=== PATIENT | female | born 1970 | race Caucasian/White ===

== ENCOUNTER → 2017-07-16 17:00 | Outpatient (CLI) | payer BC, MEDICAID, SELFPAY ==
--- NOTE | 2017-07-16 16:46 | BI_ITS ---
MAMMOGRAPHY - BILATERAL SCREENING REASON FOR EXAM: Female, 47 years old. Routine annual screening examination. PERTINENT HISTORY: Aunt with breast cancer. Bilateral breast implants. TECHNIQUE: Digital bilateral breast zuly (3D mammographic acquisition) in the CC and MLO projections. 2-D mediolateral oblique (MLO) and craniocaudad (CC) views of both breasts were obtained. CAD: Full Field Digital Mammography with Computer Added Detection was performed. COMPARISON: Comparison is made with prior study dated June 12, 2016 and February 09, 2015. FINDINGS: Breast Composition: There are scattered areas of fibroglandular density. There are no dominant masses or suspicious calcifications. Stable appearance of the bilateral breast implants. No other significant abnormalities are identified. There has been no significant change since the prior study. BI/SCREENING MAMM (CAD), BILAT IMPRESSION: Stable bilateral screening mammogram. Yearly follow-up mammogram recommended. (A) ASSESSMENT CATEGORY: BIRADS Category 2: Benign. A letter regarding these results will be sent to the patient by the facility within 30 days. Approximately 10% of breast cancers are not detected by mammography. A normal mammogram should not delay biopsy of a clinically suspicious abnormality. [id number] Electronically Signed: Abelino Galeas MD at 8:55 EDT Tel [phone], Service support ,
== END ==
PROVIDERS: Family Provider Family Medicine; PCP Family Medicine; Visit Provider Family Medicine
DX: Z12.31 Encounter for screening mammogram for malignant neoplasm of breast (principal)
CPT/HCPCS: 77063; 77067

== ENCOUNTER → 2017-08-02 12:43 | Outpatient (CLI) | payer BC, MEDICAID, SELFPAY ==
--- NOTE | 2017-08-02 12:51 | ECHOD_ITS ---
Reason For Study: Palpitations Procedure This was a 2D Doppler, Color Flow transthoracic echocardiogram. Exam performed in department. Left Ventricle Normal LV size. Left ventricular systolic function is normal. The estimated ejection fraction is 65 %. Normal diastology for age. No regional wall motion abnormalities noted. Right Ventricle Normal RV size. Normal systolic function. Atria Normal left atrium. Normal right atrium. No doppler evidence for ASD. Mitral Valve There is no mitral annular calcification. Normal mitral valve. Trivial mitral valve insufficiency. Tricuspid Valve Normal tricuspid valve. Mild tricuspid valve insufficiency. Right ventricular systolic pressure estimated to be 20 mmHg. Aortic Valve Trisinus/trileaflet aortic valve. Normal aortic valve. Pulmonic Valve Normal pulmonic valve. Trivial pulmonic valve insufficiency. Great Vessels Normal sized aortic root. Pericardium/Pleural No pericardial effusion. MMode/2D Measurements & Calculations LVIDd: 4.3 cm IVSd: 0.94 cm Ao root diam: 3.0 cm LVIDs: 3.0 cm LVPWd: 0.86 cm LA dimension: 2.8 cm RVDd: 2.8 cm FS: 30.8 % LAV(MOD-bp): 29.6 ml LA A4 area: 11.1 cm2 RA A4 area: 14.0 cm2 LAV(MOD-bp) Indexed: 16.6 ml/m2 LAV(MOD-sp2): 41.0 ml LAV(MOD-sp4): 21.2 ml Doppler Measurements & Calculations MV E max virgilio: 61.1 cm/sec Lat Peak E' Virgilio: 11.4 cm/sec Med Peak E' Virgilio: 9.4 cm/sec MV A max virgilio: 53.6 cm/sec E/E' lat: 5.4 E/E' med: 6.5 MV E/A: 1.1 Ao V2 max: 110.0 cm/sec LV V1 max: 89.8 cm/sec PA V2 max: 90.4 cm/sec Ao max P.8 mmHg LV V1 max P.2 mmHg TR max virgilio: 204.1 cm/sec TR max P.7 mmHg Interpretation Summary Left ventricular systolic function is normal. The estimated ejection fraction is 65 %. Trivial mitral valve insufficiency. Mild tricuspid valve insufficiency. Trivial pulmonic valve insufficiency. Right ventricular systolic pressure estimated to be 20 mmHg. Normal diastology for age. Comment / Disclaimer: The offiial transthoracic echocardiogram report was delayed secondary to [facility] Information Systems technical issues. A hand writtern preliminary report was previously made available for review. Ordering Physician: Oren Martell Referring Physician: Massimo Farris MD Performed By: Kathi Paredes RDCS
== END ==
PROVIDERS: Family Provider Family Medicine; PCP Family Medicine; Visit Provider Internal Medicine Cardiovascular Disease
DX: R00.2 Palpitations (principal); I49.9 Cardiac arrhythmia, unspecified
CPT/HCPCS: 93270; 93306

== ENCOUNTER 2017-12-18 19:25 | Emergency (ER) | payer BC, MEDICAID, SELFPAY ==
[2017-12-18 19:26] VITALS: BP 131/81; PULSE 81; RESP 20; TEMP 36.7; O2SAT 98; BMI 27.8
--- NOTE | 2017-12-18 20:07 | ED.VISSUMM ---
- ER Visit Summary Date of Service: 12/18/17 Chief Complaint: Stitches broke. History of Present Illness: The patient is a [address] Massimo Farris. She reports that 5 days ago she had a skin cancer removed by Dr. Alan. She reports that this was closed with 3 stitches. States that one was loose and fell out yesterday. Second was loose today so she removed it. The third was still tight, but she removed it as well. She reports that she was washing her face tonight and the wound broke open. She denies any drainage, redness, or pain. She has an appointment for follow-up in 2 days. Physical Examination: Vitals: Stable. Afebrile. General: Well-nourished and well-developed. Head: Normocephalic atraumatic. Neck: Supple, no lymphadenopathy. No JVD. Nontender. Cardiovascular: Regular rate and rhythm. No murmurs. Respiratory: No respiratory distress. Clear to auscultation bilaterally. Abdominal: Soft, nontender, nondistended, normal bowel sounds. No guarding, rebound, or peritoneal signs. Back: Nontender. Extremities: Nontender, no edema. Skin: 1 cm incision just lateral to her right eye that has dehisced. There is no erythema, induration, or drainage. No bleeding. Neurologic: Alert and oriented ?3. Cranial nerves II through XII are intact. Normal strength and sensation. Psych: Normal affect. Emergency Department Course and Treatment: Had a prolonged discussion with the patient about this wound. I do not feel that closing it is in her best interest. It was brought together with Steri-Strips. Treatment Plan: Patient be discharged instructions to follow-up with dermatology in 2 days previously scheduled. Return to the emergency department for any worsening symptoms. Disposition: To home in improved and stable condition. Impression: 1. Right eyebrow incision dehiscence. This note was generated with [employer] dictation software. It may contain incorrect words, spelling, and punctuation that were not noted in review of the chart prior to signing ED Disposition - Plan for ED Patient: Disposition: Home or Assisted Living Chief Complaint: Wound Check Instructions: ED Wound Check Post Op No Infec Referrals: Doctor,Your [STAFF PHYSICIAN] - Keep Carlos Eduardo appointment
[2017-12-18 20:17] VITALS: BP 127/63; PULSE 75; RESP 16; O2SAT 99
== END 2017-12-18 20:35 | disposition home or self-care (01) ==
LOC: ED 20:18
PROVIDERS: Emergency Provider Emergency Medicine; Family Provider Family Medicine; PCP Family Medicine
DX: T81.31XA Disruption of external operation (surgical) wound, not elsewhere classified, initial encounter (principal)
CPT/HCPCS: 99282

== ENCOUNTER → 2018-08-25 15:23 | Outpatient (CLI) | payer BC, SELFPAY ==
--- NOTE | 2018-08-25 15:26 | BI_ITS ---
MAMMOGRAPHY - BILATERAL SCREENING 3-D TOMOSYNTHESIS REASON FOR EXAM: Female, 48 years old. Bilateral Screening 3-D tomosynthesis PERTINENT HISTORY: History of breast lift and implants in 2000.. TECHNIQUE: 2-D mammograms and 3-D Tomosynthesis of the breast (s) were performed. CAD was performed. COMPARISON: July 16, 2017, June 12, 2016 FINDINGS: The breast composition is almost entirely fat. There are stable bilateral subpectoral saline implants. Scattered benign calcifications are seen. No dense spiculated masses or suspicious microcalcifications are identified. No architectural distortion is identified. There is no skin thickening or retraction. There has been no significant change since the prior study. BI/SCREEN MAMM (CAD) W/CALVIN BILAT IMPRESSION: No mammographic signs of malignancy. Routine yearly mammograms recommended. ASSESSMENT CATEGORY: BIRADS Category 2: Benign. A letter regarding these results will be sent to the patient by the facility within 30 days. FOLLOW UP RECOMMENDATION: Yearly follow up mammogram recommended. (A) Approximately 10% of breast cancers are not detected by mammography. A normal mammogram should not delay biopsy of a clinically suspicious abnormality. Electronically Signed: Cale Gasca MD at 11:41 EDT , Service support ,
== END ==
PROVIDERS: Family Provider Family Medicine; PCP Family Medicine; Referring Provider Family Medicine; Visit Provider Family Medicine
DX: Z12.31 Encounter for screening mammogram for malignant neoplasm of breast (principal)
CPT/HCPCS: 77063; 77067

== ENCOUNTER 2019-07-17 17:19 | Emergency (ER) | payer OTHER, SELFPAY ==
[2019-07-17 17:20] VITALS: BP 139/100; PULSE 86; RESP 16; TEMP 36.4; O2SAT 99; BMI 28.3
--- NOTE | 2019-07-17 17:35 | CT_ITS ---
STUDY: CT ABDOMEN AND PELVIS WITHOUT CONTRAST REASON FOR EXAM: Female, 49 years old. LT ABD PAIN X SEVERAL HOURS. Hx of csection x 5, tubal ligation and breast augmentation RADIATION DOSAGE (If Supplied By Facility): CTDIvol = ( 16.04 ) mGy, DLP = ( 811.80 ) mGycm TECHNIQUE: Transaxial images were obtained from the dome of the diaphragm to the symphysis pubis without oral contrast, and without intravenous contrast. Sagittal and coronal images were reconstructed. Individualized dose optimization techniques were used for this CT. COMPARISON: 10/30/2016 FINDINGS: The visualized lung bases are unremarkable. The visualized portions of the heart are within normal limits. Breast implants. Stable 3.1 x 2.4 cm low-density lesion in the right hepatic lobe. 1 cm inferior right hepatic lobe cyst. Cholelithiasis. Normal spleen. Normal pancreas. Normal bilateral adrenal glands. Absent right kidney. Multiple small nonobstructing left renal stones. Normal visualized stomach. Normal small intestine. Normal colon. The appendix is visualized and appears normal. Normal abdominal aorta. Normal inferior vena cava. Normal retroperitoneum. Normal urinary bladder. Low-density lesion at the junction of the uterus and left adnexa measuring 4.3 x 3.3 cm. Differential includes necrotic uterine fibroid, adnexal cyst, and ovarian cyst. More laterally, left ovary cyst is identified measuring 16 x 13 mm. Normal abdominal wall. Normal osseous structures. CT/Abdomen/Pelvis W IV Cont ONLY IMPRESSION: No evidence of appendicitis, acute intestinal pathology, or acute obstructive uropathy. Cholelithiasis. Stable 3.1 x 2.4 cm low-density lesion in the right hepatic lobe. Low-density lesion at the junction of the uterus and left adnexa measuring 4.3 x 3.3 cm. Differential includes necrotic uterine fibroid, adnexal cyst, and ovarian cyst. More laterally, a left ovary cyst is identified measuring 16 x 13 mm. Electronically Signed: Abebe Julian MD at 19:37 EDT Tel , Service support ,
[2019-07-17 17:44] LABS: Bacteria 0 SEEN /hpf (None Seen); Mucous, Urine 0 SEEN /hpf (<or=2+)
[2019-07-17] MEDS: Ondansetron 4 MG/2 ML Vial IV (17:46)
[2019-07-17] MEDS: Morphine 4 MG/ML Syringe IV ×2 (17:46→22:19)
[2019-07-17] MEDS: 0.9% Normal Saline 1,000 ML 1000 ML IV (17:46)
[2019-07-17 17:47] LABS: Absolute Lymphocyte Count 2.86 X10^3/uL (0.83-4.51); Absolute Neutrophil Count 7.6 X10^3/uL (2.0-7.7); Basophil# 0.04 X10^3/uL; Basophil% 0.3 % (0-1); Eosinophils% 0.9 % (0-5); Hematocrit 41.5 % (37-47); Hemoglobin 13.9 g/dL (12.0-15.0); Lymphocyte # 2.86 X10^3/ul (4.0); Lymphocyte % 24.9 % (19-41); Mean Corp Hgb Conc 33.5 g/dL (32-36); Mean Corpuscular Hgb 29.6 pg (27.0-32.0); Mean Corpuscular Volume 88.5 fL (81-99); Mean Platelet Vol. 9.2 fl (6.2-12.0); Monocyte# 0.81 X10^3/uL; NRBC Flagged by Analyzer 0 % (0-5); Neutrophil # 7.62 X10^3/uL (2.7-7.7); Neutrophil % 66.3 % (47-70); Platelet Count 343 K/mm3 (150-450); RBC Distribution Width CV 12.5 % (11.6-14.6); RBC Distribution Width SD 40.5 fl (35.1-43.9); Red Blood Count 4.69 M/mm3 (4.2-5.4); White Blood Count 11.5 K/mm3 (4.4-11.0)
[2019-07-17 17:57] LABS: Color, Urine Yellow (Yellow); Glucose, Dipstick Normal (Normal); Ketone-Dipstick 5 mg/dl (Negative); Leukocyte Esterase-Dipstick 100 /ul (Negative); Nitrite-Dipstick Negative (Negative); Occult Blood-Urine 150 /ul (Negative); Protein-Dipstick 15 mg/dl (Negative); Specific Gravity, Urine 1.015 (1.002-1.030); Urine Bilirubin Dipstick Negative (Negative); Urine Clarity Cloudy (Clear); Urine Urobilinogen Normal (Normal)
--- NOTE | 2019-07-17 18:15 | ED.DCSUM_ITS ---
History of Present Illness Chief Complaint: Abd Pain Informant: Patient Onset: Today Context: Sudden Onset Timing: Continuous Current Severity: Moderate Maximum Severity: Severe Narrative: The patient is a 49-year-old female with medical history significant for prior kidney stone and ovarian cyst that presents to the emergency department with rather acute onset left lower quadrant pain. The patient states she was in her normal state of health. She states that she had sudden onset pain in her left lower quadrant that radiated to her back. She was acutely nauseated. She states there is components that feels similar to kidney stone and some that feel similar to prior ovarian cyst. She denies any trauma. She denies any fever or chills. She does admit to some increased urinary frequency. The patient is otherwise been in her normal state of health. Prior similar symptoms: No Recent Illness/Hospitalization: No Past Medical History - Allergies and Home Meds Allergies/Adverse Reactions: Allergies No Known Allergies Allergy (Verified 07/17/19 17:20) Primary Care Physician: Massimo Farris MD [Primary Care Provider] - Prior records reviewed: Yes Past Medical History: - - Prior kidney stone, ovarian cyst removal Surgical History: - Smoking Status: Never smoker Review of Systems General: Reports: Chills. Denies: Fever, Sweats Eyes: Denies: Visual changes - bilaterally, Diplopia ENT: Denies: Rhinorrhea, Sore throat Cardiovascular: Denies: Chest pain, Palpitations Respiratory: Denies: Dyspnea, Cough, Dyspnea on exertion Gastrointestinal: Reports: Abdominal pain, Nausea. Denies: Vomiting, Diarrhea, Melena, Hematochezia Genitourinary: Denies: Dysuria, Hematuria, Frequency Musculoskeletal: Denies: Back pain, Extremity Pain Skin: Denies: Rash, Wounds Neurological: Denies: Headache, Weakness, Numbness Physical Exam Vital Signs/Narrative: Vital Signs Temp Pulse Resp BP Pulse Ox 07/17/19 17:20 97.5 F L 86 16 139/100 H 99 Inital Vital Signs reviewed: Yes General: Well nourished, Well developed, No Acute Distress Head: Normocephalic, Atraumatic Eyes: Perrl, EOMI ENT: Moist mucous membranes, No rhinorrhea Neck: Supple, Nontender Cardiovascular: Regular rate, Regular rhythm, No murmurs Respiratory: No distress, CTA bilaterally, Chest nontender Abdomen: Soft, Nondistended, Normal bowel sounds, Tender. Negative for: Guarding, Rebound tenderness Back: Nontender, Normal Inspection Extremities: Nontender, No edema Skin: Normal color, No rash Neurological: Alert, Oriented x3, Cranial nerves II-XII grossly intact, Normal Strength, Normal Sensation Psychological: Normal affect, Normal Mood Diagnostic/Tx/Re-eval Clinical Impression(s) from Imaging Studies Abdomen/Pelvis CT 07/17/19 17:35 IMPRESSION: No evidence of appendicitis, acute intestinal pathology, or acute obstructive uropathy. Cholelithiasis. Stable 3.1 x 2.4 cm low-density lesion in the right hepatic lobe. Low-density lesion at the junction of the uterus and left adnexa measuring 4.3 x 3.3 cm. Differential includes necrotic uterine fibroid, adnexal cyst, and ovarian cyst. More laterally, a left ovary cyst is identified measuring 16 x 13 mm. Electronically Signed: Abebe Julian MD at 19:37 EDT Tel , Service support , Abnormal Lab Results 07/17/19 07/17/19 07/17/19 17:30 17:30 17:30 WBC 11.5 H RBC 4.69 Hgb 13.9 Hct 41.5 MCV 88.5 MCH 29.6 MCHC 33.5 RDW Std Deviation 40.5 RDW Coeff of Ruth 12.5 Plt Count 343 MPV 9.2 Immature Gran % (Auto) 0.600 Neut % (Auto) 66.3 Lymph % (Auto) 24.9 Chambers % (Auto) 7.0 Eos % (Auto) 0.9 Baso % (Auto) 0.3 Absolute Neuts (auto) 7.6 Absolute Lymphs (auto) 2.86 Nucleated RBC % 0 Sodium 138 Potassium 3.2 L Chloride 104 Carbon Dioxide 23.0 Anion Gap 11 BUN 13 Creatinine 1.15 H Estim Creat Clear Calc 51.10 Est GFR (MDRD) Af Amer 65 Est GFR (MDRD) Non-Af 53 L BUN/Creatinine Ratio 11.3 Glucose 142 H Calcium 9.3 Total Bilirubin 0.20 AST 14 L ALT 22 Alkaline Phosphatase 76 Total Protein 7.7 Albumin 3.7 Globulin 4.0 Albumin/Globulin Ratio 0.9 Urine Color Yellow Urine Clarity Cloudy Urine pH 8.0 Ur Specific Chemult 1.015 Urine Protein 15 H Urine Glucose (UA) Normal Urine Ketones 5 H Urine Occult Blood 150 H Urine Nitrite Negative Urine Bilirubin Negative Urine Urobilinogen Normal Ur Leukocyte Esterase 100 H Urine RBC 5-10 SEEN Urine WBC 10-25 SEEN Ur Squamous Epith Cells 0-5 SEEN Ur Transition Epith Cell 0 SEEN Amorphous Sediment 3+ Urine Bacteria 0 SEEN Coarse Granular Casts 0-5 SEEN Urine Mucus 0 SEEN - Medical Decision Making Clinically, the patient symptoms do seem more consistent with kidney stone. She had a sudden onset pain that would wax and wane and radiated to her back. However, the pain is been rather persistent. She is afebrile and has no tachycardia. IV was established. Patient was given fluids, analgesics, and antiemetics. Her pain was improved but she was still nauseated. Screening labs were obtained. She has a mild leukocytosis, otherwise lab work was unremarkable. There are some white cells in the urine without any bacteria and a few crystals. Patient underwent CT of the abdomen pelvis which shows multiple stones within the left kidney, but no evidence of acute obstruction or pyelonephritis. There is some abnormalities in the pelvis that are concerning for cyst of the ovary versus necrotic adnexal cyst. With the patient subjective chills, I did feel reasonable to obtain ultrasound. Results are currently pending. I do feel as long as this shows no significant abnormalities, the patient can safely be discharged home. Impression Left lower quadrant pain ED Disposition - Plan for ED Patient: Instructions: ED Pelvic Pain [facility] Prescriptions: Hydrocodone Bitart/Apap 5-325 [[place] 5MG-325MG] 1 tab PO Q6H PRN PRN 3 Days #10 tab PRN Reason: Pain Prescription Printed Ondansetron [Zofran Odt] 4 mg PO Q8H PRN PRN #10 tab PRN Reason: Nausea Prescription Printed Referrals: Massimo Farris MD [Primary Care Provider] -
[2019-07-17 18:38] LABS: Amorphous Sediment 3+; Squamous Epithelial Cells - UA 0-5 SEEN /hpf (5-10); Transitional Epithelial - Ur 0 SEEN /hpf (0-5)
[2019-07-17 18:39] LABS: Coarse Granular Cast 0-5 SEEN /lpf (0-5 /lpf)
[2019-07-17 18:40] LABS: Red Blood Cells-Urine 5-10 SEEN /hpf (0-5)
[2019-07-17 18:42] VITALS: TEMP 36.9
[2019-07-17 18:42] LABS: White Blood Cells 10-25 SEEN /hpf (0-5)
[2019-07-17 18:59] LABS: ALB/GLOB Ratio 0.9 RATIO (0.9-2.4); AST(SGOT) 14 U/L (15-37); Alanine Aminotransfer ALT/SGPT 22 U/L (13-56); Albumin, Serum 3.7 g/dL (3.2-5.0); Alkaline Phosphatase 76 U/L (45-117); Anion Gap 11 (5-15); BUN 13 mg/dL (7-18); BUN/Creat Ratio 11.3 RATIO (10-20); Calcium,Total 9.3 mg/dL (8.5-10.1); Chloride 104 mmol/L (98-107); Creatinine, Serum 1.15 mg/dL (0.55-1.02); EST Glomerular Filtration Rate 53 mL/min (>60); Est Glom Filt Rate - Afr Amer 65 mL/min (>60); Glucose 142 mg/dL (74-106); Potassium 3.2 mmol/L (3.5-5.1); Protein, Total 7.7 g/dL (6.4-8.2); Sodium Level 138 mmol/L (136-145)
[2019-07-17] MEDS: proMETHazine 25 MG/ML Syringe 6.25 MG IV (19:02)
--- NOTE | 2019-07-17 19:40 | US_ITS ---
STUDY: ULTRASOUND OF THE FEMALE PELVIS - COMPLETE REASON FOR EXAM: Female, 49 years old. LLQ PAIN LMP: 07/06/2019 TECHNIQUE: Transabdominal and Transvaginal TECHNICAL QUALITY: Adequate. COMPARISON: CT same day FINDINGS: The uterus is anteverted and is in a midline position. The uterus measures 8.1 x 5.3 x 4.0 cm. The cervix contains fluid. A 7 x 6 x 5 mm polyp is present in the cervix. The endometrium measures 3.2 mm in thickness, and is hyperechoic. There is no demonstrated endometrial mass. A left-sided myometrial mass is noted, isoechoic, compatible with fibroid, likely corresponding to recent CT abnormality, measuring 4.3 x 3.5 x 3.4 cm. Heterogeneous right-sided uterine fibroid measuring 14 x 15 x 13 mm. Heterogeneous fibroid in the mid uterus measuring 9 x 7 x 6 mm. I.U.D. - The patient does not have an I.U.D. The right ovary is visualized. The right ovary measures 2.4 x 2.9 x 1.8 cm. There is no right ovarian cyst or ovarian mass. There is no visualized right adnexal mass or complex lesion. There is normal arterial and normal venous vascularity. The left ovary is visualized. The left ovary measures 2.8 x 2.3 x 2.0 cm. Left ovary cyst measuring 19 x 18 x 16 mm. There is no visualized left adnexal mass or complex lesion. There is normal arterial and normal venous vascularity. There is no fluid in the cul-de-sac. The pre void volume of the bladder was 194.38 ml. Polycystic ovary disease: No. US/Transvaginal Non- IMPRESSION: Multiple uterine fibroids. The largest is on the left, measuring up to 4.3 cm, likely corresponding to abnormality seen on recent CT exam. Left ovary cyst measuring 19 x 18 x 16 mm. The cervix contains fluid. A 7 x 6 x 5 mm polyp is present in the cervix. Electronically Signed: Abebe Julian MD at 21:51 EDT Tel , Service support ,
[2019-07-17 22:25] VITALS: BP 119/67; PULSE 92; RESP 18; TEMP 36.6; O2SAT 96
== END 2019-07-17 22:53 | disposition home or self-care (01) ==
LOC: ED 18:47
PROVIDERS: Emergency Provider Emergency Medicine; PCP Family Medicine
DX: R10.32 Left lower quadrant pain (principal); N83.202 Unspecified ovarian cyst, left side; K80.20 Calculus of gallbladder without cholecystitis without obstruction; D25.9 Leiomyoma of uterus, unspecified; Z87.442 Personal history of urinary calculi; R35.0 Frequency of micturition
CPT/HCPCS: 74177; 76830; 80053; 81001; 85025; 96361; 96374; 96375; 96376; 99283; J7030; Q9967; A4216; J2405

== ENCOUNTER 2019-07-20 14:52 | Emergency (ER) | payer OTHER, SELFPAY ==
[2019-07-20 14:54] VITALS: BP 111/72; PULSE 101; RESP 16; TEMP 36.6; O2SAT 96; BMI 28.3
--- NOTE | 2019-07-20 15:46 | ED.DCSUM_ITS ---
History of Present Illness Chief Complaint: Vag Bleeding Informant: Patient Pain: Pelvic Pain Onset: Days - 3-4 Context: Gradual Onset Timing: Continuous Quality: Aching Location: - - throughout pelvis Current Severity: Severe Maximum Severity: Severe Worsened by: Movement - and walking Issue: Vaginal bleeding - ? -- thinks vagina but not sure; it's not a period Context: Gradual Onset Timing: Continuous Current Severity: Heavy Maximum Severity: Heavy Associated Symptoms: Negative for: Dysuria, Frequency, Urgency Narrative: Patient seen here from her PCPs office with increasing pain, possibly low-grade fevers, and continued worsening bleeding. Patient thinks it is vaginal but states she is not sure. She has not had a pelvic exam. She was seen in the ER and had a CT of the abdomen and pelvis as well as an ultrasound, both of which showed a large uterine fibroid, incidental gallstones, and no sign of a kidney stone, however the patient states that someone told her it may be a kidney stone or a fibroid. She has some low back pain nonlateralizing. She denies nausea vomiting. She has had no bowel movement since she started taking the Foley when she was initially evaluated for this 3 or 4 days ago. She denies any other focal symptoms that could be responsible for the fevers. She denies urinary sy mptoms, cough, shortness of breath, URI symptoms. - Past Medical History (1) Paroxysmal atrial fibrillation Status: Chronic Past Medical History - Allergies and Home Meds Allergies/Adverse Reactions: Allergies No Known Allergies Allergy (Verified 07/20/19 14:52) Primary Care Physician: Massimo Farris MD [Primary Care Provider] - Smoking Status: Never smoker Review of Systems General: Reports: Fever, Malaise, Subjective. Denies: Chills, Sweats Eyes: Denies: Visual changes - bilaterally, Diplopia ENT: Denies: Rhinorrhea, Sore throat Cardiovascular: Denies: Chest pain, Palpitations Respiratory: Denies: Dyspnea, Cough, Dyspnea on exertion Gastrointestinal: Reports: Abdominal pain. Denies: Nausea, Vomiting, Diarrhea, Melena, Hematochezia Genitourinary: Reports: - - Bleeding, suspected vaginal. Denies: Dysuria, Hematuria, Frequency Musculoskeletal: Denies: Neck pain, Back pain, Extremity Pain Skin: Denies: Rash, Wounds Neurological: Denies: Headache, Weakness, Numbness Physical Exam Vital Signs/Narrative: Vital Signs Temp Pulse Resp BP Pulse Ox 07/20/19 14:54 97.9 F 101 H 16 111/72 96 Inital Vital Signs reviewed: Yes General: Well nourished, Well developed, - - No acute distress. Head: Normocephalic, Atraumatic Eyes: Perrl, EOMI ENT: Moist mucous membranes, No rhinorrhea Neck: Supple, Nontender Cardiovascular: Regular rate, Regular rhythm, No murmurs Respiratory: No distress, CTA bilaterally, Chest nontender Abdomen: Soft, Nondistended, Normal bowel sounds, Tender - Throughout pelvis, Guarding - Voluntary. Negative for: Rebound tenderness : Speculum exam: Normal external genitalia, No vaginal lesions, No vaginal discharge, No active bleeding, Old blood Bimanual exam: No cervical motion tenderness, No mass to adnexa, bilat, Tender Uterus - Mild Back: Nontender, Normal Inspection. Negative for: CVA tenderness Extremities: Nontender, No edema Skin: Normal color, No rash, No Trauma Neurological: Alert, Oriented x3, Cranial nerves II-XII grossly intact, Normal Strength, Normal Sensation, Normal Gait Psychological: Normal affect, Normal Mood Diagnostic/Tx/Re-eval Laboratory Tests 07/20/19 07/20/19 Range/Units 16:15 16:15 WBC 13.0 H (4.4-11.0) K/mm3 RBC 4.51 (4.2-5.4) M/mm3 Hgb 13.2 (12.0-15.0) g/dL Hct 40.7 (37-47) % MCV 90.2 (81-99) fL MCH 29.3 (27.0-32.0) pg MCHC 32.4 (32-36) g/dL RDW Std Deviation 42.3 (35.1-43.9) fl RDW Coeff of Ruth 12.8 (11.6-14.6) % Plt Count 265 (150-450) K/mm3 MPV 9.6 (6.2-12.0) fl Immature Gran % (Auto) 0.800 (0.0-0.9) % Neut % (Auto) 75.7 H (47-70) % Lymph % (Auto) 13.2 L (19-41) % Cole % (Auto) 9.6 (0-10) % Eos % (Auto) 0.5 (0-5) % Baso % (Auto) 0.2 (0-1) % Absolute Neuts (auto) 9.8 H (2.0-7.7) X10^3/uL Absolute Lymphs (auto) 1.71 (0.83-4.51) X10^3/uL Nucleated RBC % 0 (0-5) % Sodium 138 (136-145) mmol/L Potassium 3.9 (3.5-5.1) mmol/L Chloride 107 (98-107) mmol/L Carbon Dioxide 24.0 (21.0-32.0) mmol/L Anion Gap 7 (5-15) BUN 9 (7-18) mg/dL Creatinine 0.94 (0.55-1.02) mg/dL Estim Creat Clear Calc 62.52 ml/min Est GFR (MDRD) Af Amer 82 (>60) mL/min Est GFR (MDRD) Non-Af 68 (>60) mL/min BUN/Creatinine Ratio 9.6 L (10-20) RATIO Glucose 103 (74-106) mg/dL Calcium 9.1 (8.5-10.1) mg/dL - Treatment/Re-Evaluation Treatment: Naproxen PO - Medical Decision/Diagnostic Studies Discussed above results, as well as her CT and ultrasound from 3 days ago, with Dr. Raymond. Apparently the patient was seen in the office today by her nurse practitioner. There was some speak about stones of some sort. I am not sure, but I discussed the fact that the patient had a CT that showed no urolithiasis, and incidental cholelithiasis which I think has nothing to do with this, as well as the fact that she is having vaginal bleeding based on my exam. She advises that there is no reason to admit the patient right now, and she would not perform a hysterectomy based on this knowledge so far. The patient has had prior ovaries removed she stated. Urinalysis performed prior to today showed no infection, and she has no urinary symptoms. OB is comfortable following up with her in the future, the patient states she has an appointment tomorrow for repeat evaluation. I offered her a prescription for NSAIDs which she has not been taking so far and will except. She will follow-up. ED Disposition - Plan for ED Patient: Disposition: Home or Assisted Living Diagnosis: Pelvic pain, Dysfunctional uterine bleeding, Fibroid uterus Instructions: ED FIBROIDS, ED Pelvic Pain [facility] Prescriptions: Naproxen [Naprosyn] 500 mg PO BID PRN #20 tab Transmission Status: Pending to [id number] Referrals: Massimo Farris MD [Primary Care Provider] - Sherry Kumar MD [STAFF PHYSICIAN] - Keep Carlos Eduardo appointment (Tomorrow)
[2019-07-20 16:25] LABS: Absolute Lymphocyte Count 1.71 X10^3/uL (0.83-4.51); Absolute Neutrophil Count 9.8 X10^3/uL (2.0-7.7); Basophil# 0.03 X10^3/uL; Basophil% 0.2 % (0-1); Eosinophil# 0.06 X10^3/uL; Eosinophils% 0.5 % (0-5); Hematocrit 40.7 % (37-47); Hemoglobin 13.2 g/dL (12.0-15.0); Lymphocyte # 1.71 X10^3/ul (4.0); Lymphocyte % 13.2 % (19-41); Mean Corp Hgb Conc 32.4 g/dL (32-36); Mean Corpuscular Hgb 29.3 pg (27.0-32.0); Mean Corpuscular Volume 90.2 fL (81-99); Mean Platelet Vol. 9.6 fl (6.2-12.0); Monocyte# 1.25 X10^3/uL; Monocyte% 9.6 % (0-10); NRBC Flagged by Analyzer 0 % (0-5); Neutrophil # 9.84 X10^3/uL (2.7-7.7); Neutrophil % 75.7 % (47-70); Platelet Count 265 K/mm3 (150-450); RBC Distribution Width CV 12.8 % (11.6-14.6); RBC Distribution Width SD 42.3 fl (35.1-43.9); Red Blood Count 4.51 M/mm3 (4.2-5.4)
[2019-07-20 16:33] LABS: Anion Gap 7 (5-15); BUN 9 mg/dL (7-18); BUN/Creat Ratio 9.6 RATIO (10-20); Calcium,Total 9.1 mg/dL (8.5-10.1); Chloride 107 mmol/L (98-107); Creatinine, Serum 0.94 mg/dL (0.55-1.02); EST Glomerular Filtration Rate 68 mL/min (>60); Est Glom Filt Rate - Afr Amer 82 mL/min (>60); Estimated Creatinine Clearance 62.52 ml/min; Glucose 103 mg/dL (74-106); Potassium 3.9 mmol/L (3.5-5.1); Sodium Level 138 mmol/L (136-145)
[2019-07-20 16:59] VITALS: RESP 18
[2019-07-20] MEDS: Naproxen 250 MG Tablet 500 MG PO (18:17)
[2019-07-20 18:26] VITALS: RESP 18
== END 2019-07-20 18:31 | disposition home or self-care (01) ==
PROVIDERS: Emergency Provider Emergency Medicine; PCP Family Medicine
DX: R10.2 Pelvic and perineal pain (principal); N93.8 Other specified abnormal uterine and vaginal bleeding; D25.9 Leiomyoma of uterus, unspecified; I48.0 Paroxysmal atrial fibrillation
CPT/HCPCS: 80048; 85025; 96374; 99283; A4216

== ENCOUNTER → 2019-09-09 07:00 | Outpatient (CLI) | payer OTHER, SELFPAY ==
--- NOTE | 2019-09-08 17:00 | BI_ITS ---
MAMMOGRAPHY - BILATERAL SCREENING REASON FOR EXAM: Female, 49 years old. Routine annual screening examination. PERTINENT HISTORY: Aunt with breast cancer. History of bilateral breast implants. TECHNIQUE: Digital bilateral breast calvin (3D mammographic acquisition) in the CC and MLO projections. 2-D mediolateral oblique (MLO) and craniocaudad (CC) views of both breasts were obtained. CAD: Full Field Digital Mammography with Computer Added Detection was performed. COMPARISON: Comparison is made with prior study dated August 25, 2018 FINDINGS: Breast Composition: The breasts are almost entirely fatty. There are no dominant masses or suspicious calcifications. Stable appearance of the bilateral breast implants. No other significant abnormalities are identified. There has been no significant change since the prior study. BI/SCREEN MAMM (CAD) W/CALVIN BILAT IMPRESSION: Stable bilateral screening mammogram. Yearly follow-up mammogram recommended. (A) ASSESSMENT CATEGORY: BIRADS Category 2: Benign. A letter regarding these results will be sent to the patient by the facility within 30 days. Approximately 10% of breast cancers are not detected by mammography. A normal mammogram should not delay biopsy of a clinically suspicious abnormality. [id number] Electronically Signed: Abelino Galeas, at 8:08 EDT , Service support ,
== END ==
PROVIDERS: PCP Family Medicine; Referring Provider Family Medicine; Visit Provider Family Medicine
DX: Z12.31 Encounter for screening mammogram for malignant neoplasm of breast (principal)
CPT/HCPCS: 77063; 77067

== ENCOUNTER → 2020-09-13 08:20 | Outpatient (CLI) | payer OTHER, SELFPAY ==
--- NOTE | 2020-09-13 08:23 | BI_ITS ---
MAMMOGRAPHY - BILATERAL SCREENING REASON FOR EXAM: Female, 50 years old. Routine annual screening examination. PERTINENT HISTORY: Aunt with breast cancer. Bilateral breast implants. TECHNIQUE: Digital bilateral breast calvin (3D mammographic acquisition) in the CC and MLO projections. 2-D mediolateral oblique (MLO) and craniocaudad (CC) views of both breasts were obtained. CAD: Full Field Digital Mammography with Computer Added Detection was performed. COMPARISON: Comparison is made with prior study 09/08/2019 and 08/25/2018. FINDINGS: Breast Composition: The breasts are almost entirely fatty. There are no dominant masses or suspicious calcifications. Stable appearance of the bilateral breast implants. Stable benign-appearing bilateral axillary lymph nodes. No other significant abnormalities are identified. There has been no significant change since the prior study. BI/SCRN MAMM (CAD)W/CALVIN BILAT IMPRESSION: Stable bilateral screening mammogram. Yearly follow-up mammogram recommended. (A) ASSESSMENT CATEGORY: BIRADS Category 2: Benign. A letter regarding these results will be sent to the patient by the facility within 30 days. Approximately 10% of breast cancers are not detected by mammography. A normal mammogram should not delay biopsy of a clinically suspicious abnormality. [id number] Electronically Signed: Abelino Galeas MD at 9:12 EDT , Service support ,
== END ==
PROVIDERS: PCP Family Medicine; Referring Provider Family Medicine; Visit Provider Family Medicine
DX: Z12.31 Encounter for screening mammogram for malignant neoplasm of breast (principal)
CPT/HCPCS: 77063; 77067

== ENCOUNTER 2020-12-01 07:09 | Day surgery (SDC) | payer OTHER, SELFPAY ==
[2020-12-01] VITALS (7 sets, daily range): BP systolic 105–134; BP diastolic 51–103; PULSE 58–73; RESP 17–20; TEMP 36.2–36.7; O2SAT 97–100; BMI 28.5
[2020-12-01 08:16] LABS: Hematocrit 40.4 % (37-47); Hemoglobin 13.2 g/dL (12.0-15.0); Mean Corp Hgb Conc 32.7 g/dL (32-36); Mean Corpuscular Hgb 29.8 pg (27.0-32.0); Mean Corpuscular Volume 91.2 fL (81-99); Mean Platelet Vol. 9.4 fl (6.2-12.0); Platelet Count 265 K/mm3 (150-450); RBC Distribution Width CV 12.7 % (11.6-14.6); Red Blood Count 4.43 M/mm3 (4.2-5.4); White Blood Count 7.3 K/mm3 (4.4-11.0)
[2020-12-01] MEDS: Lactated Ringers 1,000 ML 100 ML IV (08:17)
[2020-12-01 08:20] LABS: Internal QC Validated? YES +Cl - CLEAR BKGD; Pregnancy, Urine Negative Negative
--- NOTE | 2020-12-01 08:27 | PCM.DC ---
Discharge Instructions Diet Discharge Diet: No restrictions Activity Discharge Activity: Return to Normal Activity May resume sexual activity in: 1-2 weeks (no tampons, intercourse, hot tubs, tub baths, pools for 1-2 weeks until bleeding stops) Weight Bearing Status: Weight bearing as tolerated Lifting Restrictions: none Dressing / Incision Call your doctor if you observe: Fever of 101 or Higher, Numbness or Tingling, Change in Color, Inability to urinate, Inability to have a bowel movement, Using more than 1 pad per hour, Shortness of breath, Dizziness, Fainting spells, Swelling in the ankles, Chest pain, Increased palpitations (irregular heartbeat), Calf discomfort and Uncontrolled pain Follow Up Care Please Follow Up With: Pretty Sherwood DO When: 1-2 weeks Test Results: Test results from this visit will be discussed in further detail at your follow-up appointment, if applicable. Discharge Plan Admission Attending Provider: Pretty Sherwood Primary Care Provider: Massimo Farris Instructions Patient Instructions: Dilation and Curettage, Hysteroscopy Discharge Orders/Prescriptions Prescriptions: No Action multivitamin Capsule 1 cap PO DAILY RF: 0 Referrals / Follow Up: Massimo Farris MD [Primary Care Provider] - Disposition Disposition (needs filled in before D/C Order can be placed): Home, Self Care
--- NOTE | 2020-12-01 08:45 | EMB_PTH ---
PATIENT: PEREZ MCDONALD [place] [facility] [id number] AGE/SX: 50/F ROOM: RE12/01/[address]: Dr. Pretty Sherwood DO : 1970 BED: DIS: 12/01/2020 SPEC #: [id number] RECD: 12/01/20 12:59 STATUS: CHINO REFélix #: [id number] AXEL: 12/01/20 08:[address]: Pretty Sherwood DEPT: SURGICAL PATHOLOGY RECD BY: Randi Barakat ENTERED: 12/01/20 13:41 SP TYPE: ENDOM BX/C OTHR DR: Dr. Massimo Farris MD Tissues: Endometrium, NOS Procedures: Surgery Specimen Level IV HEADER OPERATION: Hysteroscopy, D & C Symphion PRE-OP DIAGNOSIS: Uterine polyp TISSUE SUBMITTED: Endometrial curettings and uterine polyp MICROSCOPIC DIAGNOSIS Endometrium and polyp, curettings: Weakly proliferative to inactive endometrium with stromal and focal glandular breakdown. Rare fragments of benign superficial endocervix with squamous metaplasia. AM:darío 12/02/2020 MICROSCOPIC DESCRIPTION Slides are reviewed. GROSS DESCRIPTION Received in fixative is one container labeled with the patient's name and designated endometrial curettings and polyp. The specimen consists of multiple irregular fragments of red-charles soft tissue that in aggregate measure 2.5 x 1.5 x 0.2 cm. The specimen is totally submitted in one cassette. / AM:darío 12/01/20 TC:[address] [facility]: [id number]
[2020-12-01] MEDS: Lidocaine 1% (20 ml mdv) 20 ML Vial (09:15)
--- NOTE | 2020-12-01 09:25 | OB.TRI.PN ---
Progress Notes Laboratory Studies: Laboratory Tests 12/01/20 12/01/20 Range/Units 07:45 07:45 WBC 7.3 (4.4-11.0) K/mm3 RBC 4.43 (4.2-5.4) M/mm3 Hgb 13.2 (12.0-15.0) g/dL Hct 40.4 (37-47) % MCV 91.2 (81-99) fL MCH 29.8 (27.0-32.0) pg MCHC 32.7 (32-36) g/dL RDW Std Deviation 42.0 (35.1-43.9) fl RDW Coeff of Ruth 12.7 (11.6-14.6) % Plt Count 265 (150-450) K/mm3 MPV 9.4 (6.2-12.0) fl Urine Test Negative Negative Assessment & Plan (1) DUB (dysfunctional uterine bleeding): PLAN: Note error. See scanned in H&P.
--- NOTE | 2020-12-01 09:28 | OP.PCM_ITS ---
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 Patient's right side of the uterus was able to be entered. Small cavity with active bleeding. One polyp noted and a biopsy of this polyp was taken. Unable to enter left side. Surgeon: Pretty Sherwood photogrammetric compilation specialist: None Type of Anesthesia: MAC Special Medications: None Specimen's removed: Uterine polyp and endometrial curettings Drains: None Estimated Blood Loss (mL): < 50 cc Fluids Replaced: 650 cc fluid deficit Description of Procedure: Patient was taken to the operating room where MAC anesthesia was found be adequate. She was prepped and draped in the dorsal lithotomy position using yellowfin stirrups. A weighted speculum was placed in the vagina to expose the cervix after a bimanual exam was performed. The anterior lip of the cervix was grasped with a single-tooth tenaculum. Local was injected circumferentially around the cervix. The cervix was noted to be very stenotic. Serial dilation was performed. The hysteroscope was advanced to the patient's right side of the uterus. A fundal polyp was noted. The lining was thickened and active bleeding was noted. The polyp was biopsied with the Symphion hysteroscope, but unable to be completely resected due to limited visualization after getting a biopsy of the polyp. The hysteroscope was then removed. The uterine sound was passed in the uterus was sounded to 9 cm. A sharp curettage was performed for moderate amount of endometrial tissue. The partial polyp and endometrial curettings were sent to pathology for review. Instruments removed from the vagina. Bleeding was hemostatic. Vaginal sweep was performed. Sponge, instrument, needle counts were correct. Patient was taken to the recovery in stable condition. Grafts/Implants Used: None Procedure Start Time: 08:49 Procedure Stop Time: 09:24 Complications None Admit VTE Documentation VTE Present on Admission: No VTE Mechan Device Prophylaxis: SCD's VTE Pharm Prophylaxis ordered?: No
== END 2020-12-01 11:09 | disposition home or self-care (01) ==
LOC: SDC 07:10 → AC 07:10
PROVIDERS: PCP Family Medicine; Referring Provider Obstetrics & Gynecology; Visit Provider Obstetrics & Gynecology
PROC: 0UB98ZZ Excision of Uterus, Via Natural or Artificial Opening Endoscopic (ICD-10-PCS; CPT 58558; principal; 2020-12-01 08:30)
DX: N84.0 Polyp of corpus uteri (principal); N93.8 Other specified abnormal uterine and vaginal bleeding; Q51.3 Bicornate uterus; Z87.891 Personal history of nicotine dependence
CPT/HCPCS: 58558; 81025; 85027; 86850; 86900; 86901; 87426; 88305; C9803; J7120; J2405

== ENCOUNTER → 2021-02-07 12:22 | Outpatient (CLI) | payer OTHER, SELFPAY ==
[2021-02-07 14:59] LABS: Absolute Lymphocyte Count 2.21 X10^3/uL (0.83-4.51); Absolute Neutrophil Count 5.2 X10^3/uL (2.0-7.7); Basophil# 0.05 X10^3/uL; Basophil% 0.6 % (0-1); Eosinophils% 1.2 % (0-5); Hemoglobin 13.4 g/dL (12.0-15.0); Lymphocyte # 2.21 X10^3/ul (0.83-4.51); Mean Corp Hgb Conc 33.5 g/dL (32-36); Mean Corpuscular Hgb 30.2 pg (27.0-32.0); Mean Corpuscular Volume 90.1 fL (81-99); Monocyte# 0.61 X10^3/uL; Monocyte% 7.4 % (0-10); NRBC Flagged by Analyzer 0 % (0-5); Neutrophil % 63.4 % (47-70); Platelet Count 328 K/mm3 (150-450); RBC Distribution Width CV 12.9 % (11.6-14.6); RBC Distribution Width SD 42.5 fl (35.1-43.9); RET-HE 34.6 pg (30-35); Red Blood Count 4.44 M/mm3 (4.2-5.4); Reticulocyte Count 1.36 % (0.5-1.5); White Blood Count 8.2 K/mm3 (4.4-11.0)
[2021-02-07 15:25] LABS: ALB/GLOB Ratio 0.8 RATIO (0.9-2.4); AST(SGOT) 19 U/L (15-37); Alanine Aminotransfer ALT/SGPT 27 U/L (13-56); Albumin, Serum 3.4 g/dL (3.2-5.0); Alkaline Phosphatase 63 U/L (45-117); Anion Gap 9 (5-15); BUN 17 mg/dL (7-18); BUN/Creat Ratio 19.1 RATIO (10-20); CRP 4.02 mg/L (0.0-3.0); Calcium,Total 8.8 mg/dL (8.5-10.1); Chloride 104 mmol/L (98-107); Creatinine, Serum 0.89 mg/dL (0.55-1.02); EST Glomerular Filtration Rate 71 mL/min (>60); Est Glom Filt Rate - Afr Amer 86 mL/min (>60); Ferritin 33 ng/mL (8-252); Globulin 4.2 g/dL (2.2-4.2); Glucose 86 mg/dL (74-106); Iron 126 ug/dL (50-170); Iron Binding Capacity,Total 396 ug/dL (250-450); Protein, Total 7.6 g/dL (6.4-8.2); Sodium Level 137 mmol/L (136-145); Thyroid Stim Hormone (TSH) 2.04 uIU/mL (0.358-3.74)
== END ==
PROVIDERS: PCP Family Medicine; Referring Provider Family Medicine; Visit Provider Family Medicine
DX: R42 Dizziness and giddiness (principal); R20.2 Paresthesia of skin; N92.4 Excessive bleeding in the premenopausal period; R09.81 Nasal congestion
CPT/HCPCS: 36415; 80053; 82728; 83540; 83550; 84443; 85025; 85045; 86140

== ENCOUNTER → 2021-02-09 18:00 | Outpatient (CLI) | payer OTHER, SELFPAY | PROVIDERS: PCP Family Medicine; Referring Provider Family Medicine; Visit Provider Family Medicine | DX: Z20.822 Contact with and (suspected) exposure to COVID-19 (principal) | CPT/HCPCS: 87633; 87635; U0005; U0003 ==

== ENCOUNTER → 2021-02-20 10:27 | Outpatient (CLI) | payer OTHER, SELFPAY | PROVIDERS: PCP Family Medicine; Referring Provider Family Medicine; Visit Provider Family Medicine | DX: R09.89 Other specified symptoms and signs involving the circulatory and respiratory systems (principal) | CPT/HCPCS: 87633; 87635; U0005; U0003 ==

== ENCOUNTER → 2021-02-27 17:16 | Outpatient (CLI) | payer OTHER, SELFPAY | PROVIDERS: PCP Family Medicine; Referring Provider Family Medicine; Visit Provider Family Medicine | DX: U07.1 COVID-19 (principal) | CPT/HCPCS: 87633; 87635; U0005; U0003 ==

== ENCOUNTER → 2021-10-31 | Outpatient (CLI) | payer OTHER, SELFPAY ==
[2021-10-31 12:49] LABS: Creatinine, Serum 0.97 mg/dL (0.55-1.02); EST Glomerular Filtration Rate 64 mL/min (>60); Est Glom Filt Rate - Afr Amer 77 mL/min (>60)
== END | disposition home or self-care (01) ==
LOC: MFPLAB 10:59
PROVIDERS: PCP Family Medicine; Visit Provider Family Medicine
DX: Z00.00 Encounter for general adult medical examination without abnormal findings (principal)
CPT/HCPCS: 36415; 82565

== ENCOUNTER → 2021-11-14 | Outpatient (CLI) | payer OTHER, SELFPAY ==
--- NOTE | 2021-11-14 13:03 | BI_ITS ---
MAMMOGRAPHY - BILATERAL SCREENING REASON FOR EXAM: Female, 51 years old. Routine annual screening examination. PERTINENT HISTORY: Aunt with breast cancer. History of bilateral breast implants. TECHNIQUE: Digital bilateral breast calvin (3D mammographic acquisition) in the CC and MLO projections. 2-D mediolateral oblique (MLO) and craniocaudad (CC) views of both breasts were obtained. CAD: Full Field Digital Mammography with Computer Added Detection was performed. COMPARISON: Comparison is made with prior study dated 09/13/2020 and 09/08/2019. FINDINGS: Breast Composition: There are scattered areas of fibroglandular density. There are no dominant masses or suspicious calcifications. Stable appearance of the bilateral breast implants. Stable small benign appearing lateral axillary lymph nodes. No other significant abnormalities are identified. There has been no significant change since the prior study. BI/SCRN MAMM (CAD)W/CALVIN BILAT IMPRESSION: Stable bilateral screening mammogram. Yearly follow-up mammogram recommended. (A) ASSESSMENT CATEGORY: BIRADS Category 2: Benign. A letter regarding these results will be sent to the patient by the facility within 30 days. Approximately 10% of breast cancers are not detected by mammography. A normal mammogram should not delay biopsy of a clinically suspicious abnormality. [id number] Electronically Signed: Abelino Galeas MD at 15:34 EDT ,
== END | disposition home or self-care (01) ==
PROVIDERS: PCP Family Medicine; Referring Provider Family Medicine; Visit Provider Family Medicine
DX: Z12.31 Encounter for screening mammogram for malignant neoplasm of breast (principal); Z98.82 Breast implant status; Z80.3 Family history of malignant neoplasm of breast
CPT/HCPCS: 77063; 77067

== ENCOUNTER → 2022-11-06 | Outpatient (CLI) | payer OTHER, SELFPAY ==
[2022-11-06 12:27] LABS: Absolute Lymphocyte Count 2.42 X10^3/uL (0.83-4.51); Absolute Neutrophil Count 5.6 X10^3/uL (2.0-7.7); Basophil# 0.05 X10^3/uL; Basophil% 0.6 % (0-1); Eosinophil# 0.16 X10^3/uL; Eosinophils% 1.8 % (0-5); Hematocrit 45.7 % (37-47); Hemoglobin 14.7 g/dL (12.0-15.0); Lymphocyte # 2.42 X10^3/ul (0.83-4.51); Lymphocyte % 27.1 % (19-41); Mean Corp Hgb Conc 32.2 g/dL (32-36); Mean Corpuscular Hgb 29.7 pg (27.0-32.0); Mean Corpuscular Volume 92.3 fL (81-99); Mean Platelet Vol. 10.1 fl (6.2-12.0); Monocyte# 0.69 X10^3/uL; Monocyte% 7.7 % (0-10); NRBC Flagged by Analyzer 0 % (0-5); Neutrophil # 5.58 X10^3/uL (2.7-7.7); Neutrophil % 62.5 % (47-70); Platelet Count 355 K/mm3 (150-450); RBC Distribution Width CV 13.2 % (11.6-14.6); RBC Distribution Width SD 44.6 fl (35.1-43.9); Red Blood Count 4.95 M/mm3 (4.2-5.4); White Blood Count 8.9 K/mm3 (4.4-11.0)
[2022-11-06 12:48] LABS: ALB/GLOB Ratio 0.7 RATIO (0.9-2.4); AST(SGOT) 14 U/L (15-37); Alanine Aminotransfer ALT/SGPT 21 U/L (13-56); Albumin, Serum 3.2 g/dL (3.2-5.0); Alkaline Phosphatase 59 U/L (45-117); Anion Gap 8 (5-15); BUN 10 mg/dL (7-18); BUN/Creat Ratio 11.9 RATIO (10-20); Calcium,Total 9.2 mg/dL (8.5-10.1); Chloride 105 mmol/L (98-107); Creatinine, Serum 0.84 mg/dL (0.55-1.02); EST Glomerular Filtration Rate 75 mL/min (>60); Est Glom Filt Rate - Afr Amer 91 mL/min (>60); Globulin 4.3 g/dL (2.2-4.2); Glucose 94 mg/dL (74-106); Protein, Total 7.5 g/dL (6.4-8.2); Sodium Level 138 mmol/L (136-145)
== END | disposition home or self-care (01) ==
LOC: MFPLAB 10:28
PROVIDERS: PCP Family Medicine; Visit Provider Family Medicine
DX: Q60.0 Renal agenesis, unilateral (principal)
CPT/HCPCS: 36415; 80053; 85025

== ENCOUNTER → 2022-11-20 | Outpatient (CLI) | payer OTHER, SELFPAY ==
--- NOTE | 2022-11-20 12:01 | BI_ITS ---
MAMMOGRAPHY - BILATERAL SCREENING REASON FOR EXAM: Female, 52 years old. Routine annual screening examination. PERTINENT HISTORY: Aunt with breast cancer. History of bilateral breast implants. TECHNIQUE: Digital bilateral breast calvin (3D mammographic acquisition) in the CC and MLO projections. 2-D mediolateral oblique (MLO) and craniocaudad (CC) views of both breasts were obtained. CAD: Full Field Digital Mammography with Computer Added Detection was performed. COMPARISON: Comparison is made with prior study November 14, 2021 and September 13, 2020. FINDINGS: Breast Composition: There are scattered areas of fibroglandular density. There are no dominant masses or suspicious calcifications. Stable appearance of the bilateral breast implants. No other significant abnormalities are identified. There has been no significant change since the prior study. BI/SCRN MAMM (CAD)W/CALVIN BILAT IMPRESSION: Stable bilateral screening mammogram. Yearly follow-up mammogram recommended. (A) ASSESSMENT CATEGORY: BIRADS Category 2: Benign. A letter regarding these results will be sent to the patient by the facility within 30 days. Approximately 10% of breast cancers are not detected by mammography. A normal mammogram should not delay biopsy of a clinically suspicious abnormality. [id number] Electronically Signed: Abelino Galeas MD at 13:20 EDT ,
== END | disposition home or self-care (01) ==
LOC: OPBI 11:59
PROVIDERS: PCP Family Medicine; Referring Provider Family Medicine; Visit Provider Family Medicine
DX: Z12.31 Encounter for screening mammogram for malignant neoplasm of breast (principal); Z80.3 Family history of malignant neoplasm of breast
CPT/HCPCS: 77063; 77067

== ENCOUNTER → 2023-02-05 | Outpatient (CLI) | payer OTHER, SELFPAY ==
[2023-02-05 15:32] LABS: Hematocrit 46.3 % (37-47); Hemoglobin 14.6 g/dL (12.0-15.0); Mean Corp Hgb Conc 31.5 g/dL (32-36); Mean Corpuscular Volume 91.9 fL (81-99); Mean Platelet Vol. 9.8 fl (6.2-12.0); Platelet Count 408 K/mm3 (150-450); RBC Distribution Width CV 13.1 % (11.6-14.6); RBC Distribution Width SD 44.1 fl (35.1-43.9); Red Blood Count 5.04 M/mm3 (4.2-5.4); White Blood Count 8.6 K/mm3 (4.4-11.0)
[2023-02-05 16:10] LABS: ALB/GLOB Ratio 0.7 RATIO (0.9-2.4); AST(SGOT) 17 U/L (15-37); Alanine Aminotransfer ALT/SGPT 24 U/L (13-56); Albumin, Serum 3.3 g/dL (3.2-5.0); Alkaline Phosphatase 74 U/L (45-117); Anion Gap 6 (5-15); BUN 13 mg/dL (7-18); BUN/Creat Ratio 14.2 RATIO (10-20); Calcium,Total 9.2 mg/dL (8.5-10.1); Chloride 108 mmol/L (98-107); Creatinine, Serum 0.91 mg/dL (0.55-1.02); EST Glomerular Filtration Rate 69 mL/min (>60); Est Glom Filt Rate - Afr Amer 83 mL/min (>60); Globulin 4.5 g/dL (2.2-4.2); Glucose 76 mg/dL (74-106); Potassium 4.1 mmol/L (3.5-5.1); Protein, Total 7.8 g/dL (6.4-8.2); Sodium Level 140 mmol/L (136-145); Thyroid Stim Hormone (TSH) 1.14 uIU/mL (0.358-3.74)
== END | disposition home or self-care (01) ==
LOC: MFPLAB 12:33
PROVIDERS: PCP Family Medicine; Visit Provider Family Medicine
DX: R42 Dizziness and giddiness (principal); R03.0 Elevated blood-pressure reading, without diagnosis of hypertension
CPT/HCPCS: 36415; 80053; 84443; 85027

== ENCOUNTER 2023-11-12 10:23 | Outpatient (CLI) | payer OTHER, SELFPAY ==
[2023-11-12 12:03] LABS: Absolute Lymphocyte Count 2.37 X10^3/uL (0.83-4.51); Absolute Neutrophil Count 6.4 X10^3/uL (2.0-7.7); Basophil# 0.05 X10^3/uL; Basophil% 0.5 % (0-1); Eosinophil# 0.12 X10^3/uL; Eosinophils% 1.2 % (0-5); Hematocrit 42.7 % (37-47); Hemoglobin 13.6 g/dL (12.0-15.0); Lymphocyte # 2.37 X10^3/ul (0.83-4.51); Lymphocyte % 24.4 % (19-41); Mean Corp Hgb Conc 31.9 g/dL (32-36); Mean Corpuscular Hgb 28.9 pg (27.0-32.0); Mean Corpuscular Volume 90.7 fL (81-99); Mean Platelet Vol. 9.8 fl (6.2-12.0); Monocyte# 0.73 X10^3/uL; Monocyte% 7.5 % (0-10); NRBC Flagged by Analyzer 0 % (0-5); Neutrophil # 6.42 X10^3/uL (2.7-7.7); Platelet Count 332 K/mm3 (150-450); RBC Distribution Width SD 43.2 fl (35.1-43.9); Red Blood Count 4.71 M/mm3 (4.2-5.4); White Blood Count 9.7 K/mm3 (4.4-11.0)
[2023-11-12 12:35] LABS: ALB/GLOB Ratio 0.8 RATIO (0.9-2.4); AST(SGOT) 11 U/L (15-37); Alanine Aminotransfer ALT/SGPT 13 U/L (13-56); Albumin, Serum 3.2 g/dL (3.2-5.0); Alkaline Phosphatase 55 U/L (45-117); Anion Gap 6 (5-15); BUN 12 mg/dL (7-18); BUN/Creat Ratio 13.5 RATIO (10-20); Calcium,Total 9.3 mg/dL (8.5-10.1); Chloride 105 mmol/L (98-107); Creatinine, Serum 0.89 mg/dL (0.55-1.02); EST Glomerular Filtration Rate 70 mL/min (>60); Est Glom Filt Rate - Afr Amer 85 mL/min (>60); Globulin 4.1 g/dL (2.2-4.2); Glucose 87 mg/dL (74-106); Potassium 4.4 mmol/L (3.5-5.1); Protein, Total 7.3 g/dL (6.4-8.2); Sodium Level 137 mmol/L (136-145)
== END 2023-11-12 23:59 | disposition home or self-care (01) ==
LOC: MFPLAB 10:26
PROVIDERS: PCP Family Medicine; Visit Provider Family Medicine
DX: R03.0 Elevated blood-pressure reading, without diagnosis of hypertension (principal); N92.4 Excessive bleeding in the premenopausal period
CPT/HCPCS: 36415; 80053; 85025

== ENCOUNTER → 2023-11-26 | Outpatient (CLI) | payer OTHER, SELFPAY ==
--- NOTE | 2023-11-26 10:15 | BI_ITS ---
MAMMOGRAPHY - BILATERAL SCREENING REASON FOR EXAM: Female, 53 years old. Routine annual screening examination. PERTINENT HISTORY: Aunt with breast cancer. Bilateral breast implants. Discomfort surrounding the left implant. TECHNIQUE: Digital bilateral breast calvin (3D mammographic acquisition) in the CC and MLO projections. 2-D mediolateral oblique (MLO) and craniocaudad (CC) views of both breasts were obtained. CAD: Full Field Digital Mammography with Computer Added Detection was performed. COMPARISON: Comparison is made with prior study November 20, 2022 and November 14, 2021. FINDINGS: Breast Composition: There are scattered areas of fibroglandular density. There are no dominant masses or suspicious calcifications. Stable appearance of the bilateral breast implants. Stable small benign-appearing bilateral axillary lymph nodes. No other significant abnormalities are identified. There has been no significant change since the prior study. BI/SCRN MAMM (CAD)W/CALVIN BILAT IMPRESSION: Stable bilateral screening mammogram. Yearly follow-up mammogram recommended. (A) ASSESSMENT CATEGORY: BIRADS Category 2: Benign. A letter regarding these results will be sent to the patient by the facility within 30 days. Approximately 10% of breast cancers are not detected by mammography. A normal mammogram should not delay biopsy of a clinically suspicious abnormality. [id number] Electronically Signed: Abelino Galeas MD at 11:04 EDT ,
== END | disposition home or self-care (01) ==
LOC: OPBI 10:14
PROVIDERS: PCP Family Medicine; Referring Provider Nurse Practitioner Family; Visit Provider Nurse Practitioner Family
DX: Z12.31 Encounter for screening mammogram for malignant neoplasm of breast (principal); Z80.3 Family history of malignant neoplasm of breast
CPT/HCPCS: 77063; 77067

== ENCOUNTER → 2024-12-18 | Outpatient (CLI) | payer OTHER, SELFPAY ==
--- NOTE | 2024-12-18 11:52 | BI_ITS ---
EXAM: SCRN MAMM (CAD)W/CALVIN BILAT DATE: 12/18/2024 CLINICAL HISTORY: F, Age 54 y/o , SCREENING TECHNIQUE: Procedure Code: [id number] Modality: MG Procedure: SCRN MAMM (CAD)W/CALVIN BILAT COMPARISON: Prior exam(s) dated 11/26/2023, 11/20/2021. FINDINGS: TISSUE DENSITY: There are scattered areas of fibroglandular density. There are bilateral retropectoral saline implants. Bilateral Breast Mammographic Findings: No significant masses, calcifications or other abnormalities are identified. BI/SCRN MAMM (CAD)W/CALVIN BILAT IMPRESSION: There is no mammographic evidence of malignancy. OVERALL FINAL ASSESSMENT BI-RADS 1: NEGATIVE. RECOMMENDATION: Routine annual follow-up in 1 Year Additional Recommendation none A letter with findings and recommendations will be mailed to the patient. Reading Location: [id number]
--- OUTSIDE RECORDS SUMMARY | 2024-12-18 12:07 | XMS RPT_ITS | CCD ---
Author Organization [facility] Inform ion [facility] Care Team Providers Care Prospect Manager Name Role Phone Leydi ERNST, Kerri Payne Unavailable [phone] BRIANNA LUCIA Unavailable Unavailable [facility] Unavailable Unavailable [facility] Unavailable Unavailable KATI LAWSON Admitting Unavailable KATI LAWSON Attending Unavailable KATI LAWSON Primary Care Unavailable Indu Ashley) Primary Care Provider Magaly Farris Unavailable Dustin Cisneros Unavailable Unavailable Dr. Magaly Farris Primary Care Unavailable Dr. Dustin Cisneros Attending UnavailIndu Doll) Primary Care Provider Unavailable Primary Care Provider UnavailMagaly Palomino MD Primary Care Provider MAGALY FARRIS Primary Care Unavailable MARQUIS FINE Attending Unavailable MAGALY PINEDA Referring Unavailable MAGALY FARRIS Primary Care Unavailable MAGALY PINEDA Attending Unavailable Indu Ashley Primary Care Provider JOHANNY TRUJILLO Attending Unavailable INDU ASHLEY Primary Care Unavailable Marycarmen Colon Attending Unavailable Marycarmen Colon Primary Care Unavailable Marycarmen Colon Primary Care Unavailable Marycarmen Colon Attending Unavailable Cassandra PRECINCT POLICE SERGEANTJohanny Attending Unavailable Cassandra PRECINCT POLICE SERGEANTJohanny Referring Unavailable Marycarmen Colon Primary Care Unavailable Medications Current Medications Medication Drug Class(es) Dates Sig (Normalized) Sig (Original) acetaminophen 325 mg / oxyCODONE hydrochloride 5 mg oral tablet (1 source) Opioid Agonist Start: 06-15-2022 End: 06-17-2022 take 1 tablet by mouth four times daily Percocet 5 mg-325 mg oral tablet ; 1 tab(s) orally 4 times a day Quantity: 12 Refills: 0 Ordered: 15-Jun-2022 Dustin Cisneros Start: 15-Jun-2022 End: 17-Jun-2022 Generic Substitution Allowed Comments: Caution federal law prohibits the transfer of this drug to any person other than the person for whom it was prescribed.May cause drowsiness. Alcohol may intensify this effect. Use care when operating dangerous machinery.This prescription cannot be refilled.This product contains acetaminophen. Do not use with any other product containing acetaminophen to prevent possible liver damage.Using more of this medication than prescribed may cause serious breathing problems. Comment on above: Caution federal law prohibits the transfer of this drug to any person other than the person for whom it was prescribed.May cause drowsiness. Alcohol may intensify this effect. Use care when operating dangerous machinery.This prescription cannot be refilled.This product contains acetaminophen. Do not use with any other product containing acetaminophen to prevent possible liver damage.Using more of this medication than prescribed may cause serious breathing problems. aspirin 81 mg delayed release oral tablet (4 sources) Nonsteroidal Anti-inflammatory Drug Start: 01-07-2017 take 1 tablet by mouth every twenty-four hours aspirin 81 MG EC tablet Take 1 (one) tablet (81 mg total) by mouth daily . 0 01/07/2017 Active biotin 5 mg oral tablet (4 sources) Start: 01-07-2017 biotin 5 mg Tab Take by mouth . 0 01/07/2017 Active Start: 01-07-2017 take 1 tablet by jenny th once daily BIOTIN FORTE TABS One tablet by mouth daily BIOTIN TABS [id number] Kerri Holley RN Ethinyl Estradiol / norgestimate (11 sources) Progestin, Estrogen Start: 03-20-2024 End: 02-19-2025 take 1 tablet by mouth once daily norgestimate 0.25 mg-ethinyl estradiol 35 mcg (SPRINTEC) 0.25-35 mg-mcg per tablet Take 1 tablet by mouth once daily. 84 tablet 3 03/20/2024 02/19/2025 Active Start: 01-11-2023 End: 03-20-2024 take 1 tablet by mouth once daily norgestimate 0.25 mg-ethinyl estradiol 35 mcg (SPRINTEC) 0.25-35 mg-mcg per tablet Take 1 tablet by mouth once daily. 84 tablet 3 01/11/2023 03/20/2024 Discontinued Start: 01-11-2023 End: 12-13-2023 take 1 tablet by mouth once daily norgestimate-ethinyl estradioL 0.25-35 mg-mcg per tablet Take 1 (one) tablet by mouth daily . 0 01/11/2023 12/13/2023 Active Start: 01-01-2023 take 1 tablet by jenny th once daily norgestimate 0.25 mg-ethinyl estradiol 35 mcg (SPRINTEC) 0.25-35 mg-mcg per tablet Take 1 tablet by mouth once daily. 28 tablet 0 01/01/2023 Active Start: 11-30-2022 End: 01-01-2023 take 1 tablet by mouth once daily norgestimate 0.25 mg-ethinyl estradiol 35 mcg (SPRINTEC) 0.25-35 mg-mcg per tablet Take 1 tablet by mouth once daily. 28 tablet 1 11/30/2022 01/01/2023 Discontinued Start: 11-30-2022 take 1 tablet by jenny th once daily norgestimate 0.25 mg-ethinyl estradiol 35 mcg (SPRINTEC) 0.25-35 mg-mcg per tablet Take 1 tablet by mouth once daily. 28 tablet 1 11/30/2022 Active Start: 12-28-2021 End: 11-30-2022 take 1 tablet by mouth once daily norgestimate 0.25 mg-ethinyl estradiol 35 mcg (SPRINTEC) 0.25-35 mg-mcg per tablet Take 1 tablet by mouth once daily. 28 tablet 11 12/28/2021 11/30/2022 Discontinued Start: 12-28-2021 take 1 tablet by jenny th once daily norgestimate 0.25 mg-ethinyl estradiol 35 mcg (SPRINTEC) 0.25-35 mg-mcg per tablet Take 1 tablet by mouth once daily. 28 tablet 11 12/28/2021 Active Start: 02-01-2021 End: 12-28-2021 take 1 tablet by mouth once daily norgestimate 0.25 mg-ethinyl estradiol 35 mcg (SPRINTEC) 0.25-35 mg-mcg per tablet Take 1 tablet by mouth once daily. 28 tablet 11 02/01/2021 12/28/2021 Discontinued Comment on above: Take 1 tablet by jenny th once daily. ibuprofen 600 mg oral tablet (1 source) Nonsteroidal Anti-inflammatory Drug Start: 3 End: 3 take 1 tablet by mouth three times daily at mealtime IBU 600 mg oral tablet ; 1 tab(s) orally 3 times a day Quantity: 30 Refills: 0 Ordered: 15-Jun-2022 Dustin Cisneros Start: 15-Jun-2022 End: 24-Jun-2022 Generic Substitution Allowed Comments: Do not take this drug if you are .It is very important that you take or use this exactly as directed. Do not skip doses or discontinue unless directed by your doctor.May cause drowsiness or dizziness.Obtain medical advice before taking any non-prescription drugs as some may affect the action of this medication.Take with food or milk. Comment on above: Do not take this geovanni g if you are .It is very important that you take or use this exactly as directed. Do not skip doses or discontinue unless directed by your doctor.May cause drowsiness or dizziness.Obtain medical advice before taking any non-prescription drugs as some may affect the action of this medication.Take with food or milk. lsfprqsv-uzl-qnl C-herb no.124 (AIRBORNE GUMMY) 250-11.66 mg chew (4 sources) dmhkvngf-avj-axm C-herb no.124 (AIRBORNE GUMMY) 250-11.66 mg chew Take by mouth once daily. Active vsonrbcq-dxa-vhb C-herb no.124 (AIRBORNE GUMMY) 250-11.66 mg chew Take by mouth once daily. 0 Active Comment on above: Take by mouth once d aily. xiohsutz-tzc-ciy C-herb no.124 (Airborne Gummy) 250-11.66 mg Chew (6 sources) ukvomgik-hsi-jnk C-herb no.124 (Airborne Gummy) 250-11.66 mg Chew Chew and Swallow daily . 0 Active Multivitamin preparation (3 sources) Start: 11-28-2020 take 1 capsule by mouth once daily Multivitamin Active 1 CAP PO DAILY November 28, 2020 12:00am mv,Ca,min/iron/FA/guar giuliana/caff (ONE-A-DAY WOMEN'S ACTIVE ORAL) (7 sources) take 1 tablet by mouth once daily, then take 1 tablet by mouth once daily mv,Ca,min/iron/FA/gua rana/caff (ONE-A-DAY WOMEN'S ACTIVE ORAL) Take 1 tablet by mouth once daily. Active take 1 tablet by jenny th once daily, then take 1 tablet by mouth once daily mv,Ca,min/iron/FA/guarana/caff (ONE-A-DA Y WOMEN'S ACTIVE ORAL) Take 1 tablet by mouth daily . 0 Active take 1 tablet by jenny th once daily, then take 1 tablet by mouth once daily mv,Ca,min/iron/FA/guarana/caff (ONE-A- Y WOMEN'S ACTIVE ORAL) Take 1 tablet by mouth once daily. 0 Active Comment on above: Take 1 tablet by jenny th once daily. vitamin b12 0.1 mg oral tablet (4 sources) Vitamin B12 Start: 01-07-2017 cyanocobalamin (B-12) 100 MCG tablet Take by mouth daily . 0 01/07/2017 Active Completed/Discontinued Medications Medication Drug Class(es) Dates Sig (Normalized) Sig (Original) acetaminophen 325 mg / HYDROcodone bitartrate 5 mg oral tablet (6 sources) Opioid Agonist Start: 07-17-2019 End: 07-20-2019 take 1 tablet by mouth every six hours as needed Hydrocodone-Acetami nophen Discontinued 1 TABLET PO EVERY 6 HOURS NEEDED 12 04July 17, 2019 July 20, 2019 12:02am Start: 10-30-2016 End: 07-16-2017 take 1 tablet by mouth every six hours as needed Hydrocodone-Acetaminophen Discontinued 1 TABLET PO EVERY 6 HOURS NEEDED October 30, 2016 12:00am July 16, 2017 2:09pm 24 hr dilTIAZem hydrochloride 120 mg extended release oral capsule (3 sources) Calcium Channel Cesar Start: 09-06-2017 End: 09-06-2017 take 1 capsule by mouth once daily, then take 1 capsule by mouth every twenty-four hours Diltiazem Hcl (Cardizem Cd) 120 mg capsule,extended release 24hr Discontinued 120 MG PO daily September 06, 2017 12:00am September 06, 2017 5:38pm fluconazole 150 mg oral tablet (3 sources) Azole Antifungal Start: 03-16-2021 End: 12-28-2021 fluconazole (DIFLUCAN) 150 mg tablet Take 1 tablet today, then a 2nd tablet in 72 hours, and 3rd tablet in another 72 hours. 3 tablet 0 03/16/2021 12/28/2021 Discontinued (Other) Comment on above: Take 1 tablet today, then a 2nd tablet in 72 hours, and 3rd tablet in another 72 hours. Take by mouth. Take one tablet by mouth then in three days repeat Dosage unknown. miSOPROStol 0.2 mg oral tablet (1 source) Prostaglandin E1 Analog Start: 1 End: 2 miSOPROStol (CYTOTEC) 200 mcg tablet Take 2 tablets by mouth at bedtime 2 nights prior to procedure and take 2 tablets by mouth at bedtime the night before procedure 4 tablet 0 12/19/2020 12/28/2021 Discontinued Comment on above: Take 2 tablets by mo uth at bedtime 2 nights prior to procedure and take 2 tablets by mouth at bedtime the night before procedure MULTIPLE VITAMINS-MINERALS (1 source) Start: 7 take 1 tablet by mouth once daily MULTIVITAMIN ADULT TABS One tablet by mouth daily MULTIPLE VITAMINS-MINERALS [id number] Kerri Holley RN predniSONE 20 mg oral tablet (1 source) Start: 3 End: 3 take 1 tablet by mouth once at mealtime, then take 1 tablet by mouth once daily, then take 1 tablet by mouth once daily predniSONE 20 mg oral tablet ; 1 tab(s) orally once 3XDAY FOR 3 DAYS THEN 1 TAB DAILY 2X DAY FOR 3 DAYS THEN ONE TAB DAILY FOR 3 DAYS Quantity: 18 Refills: 0 Ordered: 15-Jun-2022 Dustin Cisneros Start: 15-Jun-2022 End: 15-Jun-2022 Generic Substitution Allowed Comments: It is very important that you take or use this exactly as directed. Do not skip doses or discontinue unless directed by your doctor.Obtain medical advice before taking any non-prescription drugs as some may affect the action of this medication.Take with food or milk. Comment on above: It is very important that you take or use this exactly as directed. Do not skip doses or discontinue unless directed by your doctor.Obtain medical advice before taking any non-prescription drugs as some may affect the action of this medication.Take with food or milk. rivaroxaban 20 mg oral tablet (3 sources) Factor Xa Inhibitor Start: 8 End: 8 take 1 tablet by mouth once daily Rivaroxaban (Xarelto) 20 mg tablet Discontinued 20 MG PO daily September 06, 2017 12:00am September 06, 2017 5:38pm Problems Active Problems Problem Classification Problem Date Documented Date Episodic/Chronic Abdominal pain (3 sources) Pain in pelvis; Translations: [Pelvic and perineal pain] 07-21-2019 Episodic Benign neoplasm of uterus (4 sources) Uterine leiomyoma; Translations: [Leiomyoma of uterus, unspecified] Onset: 03-20-2024 07-21-2019 Episodic Cardiac dysrhythmias (7 sources) Cardiac arrhythmia; Translations: [Cardiac arrhythmia, unspecified] Onset: 03-20-2024 07-16-2017 Chronic Conditions associated with dizziness or vertigo (1 source) Vertigo; Translations: [Dizziness and giddiness] 04-23-2023 Episodic Malaise and fatigue (1 source) Other malaise; Translations: [Other malaise] Onset: 06-15-2022 Episodic Menopausal disorders (1 source) Excessive bleeding in the premenopausal period; Translations: [Excessive bleeding in the premenopausal period] Onset: 01-16-2024 Chronic Other ear and sense organ disorders (2 sources) Abnormal auditory perception; Translations: [Other abnormal auditory perceptions, bilateral] 04-23-2023 Episodic Other ear and sense organ disorders (2 sources) Other abnormal auditory perceptions, bilateral; Translations: [Other abnormal auditory perceptions, bilateral] Onset: 04-23-2023 Episodic Other female genital disorders (6 sources) Abnormal uterine bleeding; Translations: [Other specified abnormal uterine and vaginal bleeding] 12-01-2020 Chronic Other female genital disorders (3 sources) Polyp of corpus uteri; Translations: [Polyp of corpus uteri] 12-01-2020 Episodic Other non-traumatic joint disorders (2 sources) Shoulder pain 06-15-2022 Episodic Comment on above: SHOULDER PAIN Other non-traumatic joint disorders (1 source) Pain in right shoulder; Translations: [Pain in right shoulder] Onset: 06-15-2022 Episodic Other screening for suspected conditions (not mental disorders or infectious disease) (3 sources) Encounter for screening for malignant neoplasm of cervix; Translations: [Encounter for screening mammogram for malignant neoplasm of breast] Onset: 03-20-2024 Episodic Other upper respiratory infections (3 sources) Acute pharyngitis, unspecified; Translations: [Acute pharyngitis, unspecified] Onset: 11-14-2019 Episodic Spondylosis; intervertebral disc disorders; other back problems (4 sources) Cervical spondylosis; Translations: [Cervical spondylosis without myelopathy] Onset: 06-15-2022 06-15-2022 Chronic Spondylosis; intervertebral disc disorders; other back problems (2 sources) Cervical radiculopathy; Translations: [Brachial neuritis or radiculitis NOS] Onset: 06-15-2022 06-15-2022 Episodic Unclassified (1 source) No current problems or disability 01-07-2017 Unclassified (1 source) Cervical radiculopathy, acute 06-15-2022 Unclassified (1 source) DJD (degenerative joint disease), cervical 06-15-2022 Past or Other Problems Problem Classification Problem Date Documented Date Episodic/Chronic Contraceptive and procreative management (3 sources) Oral contraception; Translations: [Encounter for surveillance of contraceptive pills] Onset: 03-20-2024 Episodic Immunizations and screening for infectious disease (4 sources) Patient encounter status; Translations: [Encounter for screening for human papillomavirus (HPV)] Onset: 03-20-2024 03-20-2024 Episodic Results Test Name Value Interpretation Reference Range Facility [facility] 11-25-2024 [facility] Telephone (OBGYWM) NICOLASA MCDONALD ([id number]) 1970 F Date Time Provider Department 11/25/24 JOHANNY TRUJILLO OBRUPALI During your visit today, we recorded the following information about you: Robert Ahumada RN 11/25/2024 9:32 AM Signed [facility] calling for mammogram order. Patient is scheduled for screening mammo on 12/18/24 at 12pm. Order to RM to sign. Will fax to [facility] tomorrow when provider returns to the office. SUJATA Marcial Lorinda, LPN 11/27/2024 11:10 AM Signed Faxed signed Rx mammogram to [phone]. Janene Chaudhari LPN Allergies As of Date: 11/25/2024 (No Known Allergies) Date Reviewed: 03/20/2024 Reviewed by: Johanny Trujillo APRN.QUALITY ASSURANCE NURSE - Fully Assessed Reason for Visit: Orders [681] Prescriptions as of 11/27/2024 - norgestimate 0.25 mg-ethinyl estradiol 35 mcg (SPRINTEC) 0.25-35 mg-mcg per tablet Take 1 tablet by mouth once daily. - qltchurz-gxk-yir C-herb no.124 (AIRBORNE GUMMY) 250-11.66 mg chew Take by mouth once daily. - mv,Ca,min/iron/FA/guar giuliana/caff (ONE-A-DAY WOMEN'S ACTIVE ORAL) Take 1 tablet by mouth once daily. Meds Comments as of 02/10/2009: All medications reviewed today/February 10, 2009 Ana Gan Rn Problem List As Of Date 11/25/2024 Noted Resolved DJD (degenerative joint disease), cervical [M47*03/20/2024 Cardiac arrhythmia [I49.9] 03/20/2024 Spondylosis of cervical spine [M47.812] 06/15/2022 Uterine leiomyoma [D25.9] 03/20/2024 Encounter Status:Closed by ROBERT AHUMADA on 11/25/24 [facility] CNOVon 03-20-2024 CNOV Office Visit (OBGYWM ) NICOLASA MCDONALD ([id number]) 1970 F Date Time Provider Department 03/20/24 9:00 AM JOHANNY TRUJILLO OBGYWM During your visit today, we recorded the following information about you: Blood pressure Weight Height Last Period 124/68 74.1 kg 1.628 m 03/10/24 Johanny Trujillo APRN.CNP 03/20/2024 9:38 AM Signed Patient declined junior software developerLisa Baldwin is a 53 year old who presents for an annual gynecologic exam without complaints. She did stop OCP for a few months but was getting 2 periods a month so she restarted the OCP Postmenopausal: No. Menstrual cycle, 22-24, five days flow HRT use: Yes, OCP (currently ran out March 2024) Still get period: Yes Bleeding amount bothersome: No Bleeding between periods: Yes Period symptoms: Mood change Menopause symptoms: None control frequency: Always HPV vaccine: No; Last pap smear: 11/06/2019, negative History of abnormal pap: Yes. 1999 approx Cone biopsy: Yes: 1999 approx Bothersome pelvic pain: No Last mammogram: 2023 normal, [facility] History of abnormal mammogram: No OB History T0 L1 SAB0 IAB0 Ectopic0 Multiple0 Live Births0 Install And Repair Technician History LMP: 03/10/2024 (Exact Date), Having periods Age at Menarche: 13 Age at First : Age at Menopause: Install And Repair Technician History Comments: Sexual Activity: Yes; Male Contraception: Tubal Ligation Menstrual Tracking History Flowsheet Row Office Visit from 03/20/2024 in OB/Gynecology Period Cycle (Days) 2 Period Duration (Days) 6 Menstrual Flow Moderate PAST MEDICAL HISTORY Diagnosis Date Benign heart murmur Congenital abnormal of uterus 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 PAST SURGICAL HISTORY Procedure Laterality Date AUGMENTATION MAMMAPLASTY 03/04/2000 CONIZATION CERVIX W/WO DANDC RPR ELTRD EXC APPROX 1999 LEEP-Cervix HYSTEROSCOPY 12/01/2020 DANDC, incomplete polypectomy LIG/TRNSXJ FLP TUBE ABDL/VAG APPR UNI/BI Tubal ligation REMOVAL OF UTERUS LESION, MYOMECTOMY-AB laparoscopic with DANJUAN FAMILY HISTORY Problem Relation Age of Onset Coronary Artery Disease Father Diabetes Father Seizures Sister No Known Problems Sister No Known Problems Sister Pancreatic Cancer Brother No Known Problems Brother Breast Cancer Maternal Aunt No Known Problems Son SOCIAL HISTORY Social History Tobacco Use Smoking status: Former Current packs/day: 0.00 Average packs/day: 0.5 packs/day for 15.0 years (7.5 ttl pk-yrs) Types: Cigarettes Start date: 04/04/1991 Quit date: 04/04/2006 Years since quittin.9 Smokeless tobacco: Never Vaping Use Vaping status: Never Used Substance Use Topics Alcohol use: Not Currently Drug use: Never REVIEW OF SYSTEMS Abdomen: No abdominal pain, nausea, vomiting, diarrhea, or constipation. No bloating, early satiety, indigestion, or increased flatulence. Bladder: No dysuria, gross hematuria, urinary frequency, urinary urgency, or incontinence Breast: No breast lumps, nipple d/c, overlying skin changes, redness or skin retraction Allergies and current medication updated:Yes SENSITIVE EXAM: The sensitive examination was discussed with the Patient or Patient's Authorized Court Abstractor. As applicable, any other physician, advance practice provider, medical student, or other health professional student that will be observing or involved in the sensitive examination for educational or training purposes was discussed with the Patient or Authorized Court Abstractor. The Patient or Authorized Court Abstractor has agreed to proceed with the sensitive examination. (Sensitive examination includes inspection and/or palpation of the breasts, pelvis, prostate and anorectal regions). EXAM: BP 124/68 Ht 5' 4.094" (1.63m) Wt 163 lb 6.4 oz (74.1kg) LMP 03/10/2024 BMI 27.97 kg/(m2). GENERAL: pleasant, female in no apparent distress HEENT: Normocephalic, atraumatic, mucus membranes moist, and no lesions NECK: Supple, full range of motion, no adenopathy, and thyroid normal DERMATOLOGY: Normal, without lesions, non-icteric, and non-hirsute BREAST: soft, non-tender, symmetric, no dominant mass, normal nipple-areolar complex, no lymphadenopathy, and no nipple discharge CHEST: Normal inspiratory effort ABDOMEN: soft, non-tender, and no masses PELVIC: external genitalia normal, normal Bartholin's glands, urethra, [place]'s glands, no vulvar lesions, no cervical lesions, physiologic discharge present, normal appearing perineal body and perianal region BIMANUAL: uterus normal size, shape and consistency, no adnexal masses, and non-tender RECTOVAGINAL: deferred. NEURO: alert and oriented x3,exam grossly non-focal EXTREMITIES: normal ASSESSMENT/PLAN: 1) Health maintenance: Pap done with HPV. Mammogr (more content not included)... Normal [facility] HIGH RISK HUMAN PAPILLOMA BEST (HPV), PCR FOR DETECTION AND GENOTYPINGon 03-20-2024 HPV 16 Ag Ql (Unsp spec) Not detected Normal Not detected [facility] Comment on above: Order Comment: Speci men Type: FLUID SPECIMEN Ordering Facility: [facility] Address: [address] [place] [address] Performed By: #### H PVHRT #### [facility] CLIA [id number] [address] [place] [address] [place] HPV 18 Ag Ql (Unsp spec) Not detected Normal Not detected [facility] Comment on above: Order Comment: Speci men Type: FLUID SPECIMEN Ordering Facility: [facility] Address: [address] [place] [address] Performed By: #### H PVHRT #### [facility] CLIA [id number] [address] [place] [address] [place] HPV 31+33+35+39+45+51+52+5 6+58+59+66+68 DNA LORNE+probe Ql (Cvx) Not detected Normal Not detected [facility] Comment on above: Order Comment: Speci men Type: FLUID SPECIMEN Ordering Facility: [facility] Address: [address] [place] [address] Result Comment: High Risk HPV Other Type includes HPV types 31, 33, 35, 39, 45, 51, 52, 56, 58, 59, 66 and 68. Performed By: #### H PVHRT #### [facility] CLIA [id number] [address] [place] [address] [place] PAP TESTon 03-20-2024 ADEQUACY Satisfactory for interpretation. Normal [facility] Comment on above: Order Comment: Speci men Type: FLUID SPECIMEN Ordering Facility: [facility] Address: [address] [place] [address] Performed By: #### L [id number] #### [facility] CLIA [id number] [address] [place] [address] [place] CASE REPORT Normal [facility] Comment on above: Order Comment: Speci men Type: FLUID SPECIMEN Ordering Facility: [facility] Address: [address] [place] [address] Result Comment: Gyne cologic Cytology Report Case: [id number] Authorizing Provider: Johanny Trujillo APRN.QUALITY ASSURANCE NURSE Collected: 03/20/2024 09:45 AM Ordering Location: OB/Gynecology Received: 03/20/2024 12:14 PM First Screen: Carroll Rosado, CT, ASCP Rescreen: Madelin Maxwell, CT, ASCP Specimen: Pap Test, ThinPrep, Cervix Performed By: #### L [id number] #### [facility] CLIA [id number] [address] [place] [address] [place] CLINICAL HISTORY, CYTOLOGY, COURTESY CAR DRIVER Routine Exam Normal [facility] Comment on above: Order Comment: Speci men Type: FLUID SPECIMEN Ordering Facility: [facility] Address: [address] [place] [address] Performed By: #### L [id number] #### [facility] CLIA [id number] [address] [place] [address] [place] FINAL PERFORMING LAB Normal [facility] Comment on above: Order Comment: Speci men Type: FLUID SPECIMEN Ordering Facility: [facility] Address: [address] [place] [address] Result Comment: Tech nical component, tube former operator screening performed at [facility], [address] [place], [place] [id number] CLIA# [id number] Diagnostic interpretation performed at [facility], [address] [place], [place] [id number] CLIA# [id number] Correctional Officer: Cesra Diop M.D. Performed By: #### L [id number] #### [facility] CLIA [id number] [address] [place] [address] [place] INTERPRETATION, CYTOLOGY, COURTESY CAR DRIVER Normal [facility] Comment on above: Order Comment: Speci men Type: FLUID SPECIMEN Ordering Facility: [facility] Address: [address] [place] [address] Result Comment: Nega tive for intraepithelial lesion or malignancy. Performed By: #### L [id number] #### [facility] CLIA [id number] [address] [place] [address] [place] LMP 03/10/2024 Normal [facility] Comment on above: Order Comment: Speci men Type: FLUID SPECIMEN Ordering Facility: [facility] Address: [address] [place] [address] Performed By: #### L [id number] #### [facility] CLIA [id number] [address] [place] [address] [place] PAP DISCLAIMER COMMENT The Pap Smear is a screening test for cervical cancer. False negative results occur with all screening tests, emphasizing the need for rescreening at recommended intervals, and clinical correlation. Normal [facility] Comment on above: Order Comment: Speci men Type: FLUID SPECIMEN Ordering Facility: [facility] Address: [address] [place] [address] Performed By: #### L [id number] #### [facility] CLIA [id number] [address] [place] [address] [place] PAP NUMERICAL CONTROL DRILL PRESS OPERATOR COMMENT This specimen has be en analyzed by the ThinPrep Imaging System, an automated imaging and review system, which assists the laboratory in evaluating cells on ThinPrep Pap tests. Following automated imaging, selected walton from every slide are reviewed by a tube former operator. Normal [facility] Comment on above: Order Comment: Speci men Type: FLUID SPECIMEN Ordering Facility: [facility] Address: [address] [place] [address] Performed By: #### L [id number] #### [facility] CLIA [id number] [address] [place], [place] [address] [place] [address] [place] Absolute lymphocyte countOrd ered By: Marycarmen Colon on 11-06-2022 Lymphocytes Auto (Unsp spec) [#/Vol] 2.42 10*3/uL 0.83-4.51 [facility] Basophil percentageOrdered B y: Marycarmen Colon on 11-06-2022 Basophils/100 WBC (Bld) 0.6 % 0-1 [facility] Bilirubin [Mass/Vol] 0.30 mg/dL 0.20-1.00 [facility] Comment on above: For patients on eltr ombopag therapy, use of Dimension [place] TBIL is not recommended. Chloride [Moles/Vol] 105 mmol/L 98-107 [facility] Eosinophils/100 WBC (Bld) 1.8 % 0-5 [facility] Glucose [Mass/Vol] 94 mg/dL 74-106 [facility] Neutrophils (Bld) [#/Vol] 5.6 10*3/uL 2.0-7.7 [facility] Neutrophils/100 WBC (Bld) 62.5 % 47-70 [facility] Potassium [Moles/Vol] 4.0 mmol/L 3.5-5.1 [facility] Protein [Mass/Vol] 7.5 g/dL 6.4-8.2 [facility] Sodium [Moles/Vol] 138 mmol/L 136-145 [facility] WBC (Bld) [#/Vol] 8.9 10*3/uL 4.4-11.0 [facility] Blood erythrocytes count (nu mber/volume)Ordered By: Marycarmen Colon on 11-06-2022 RBC (Bld) [#/Vol] 4.95 10*6/uL 4.2-5.4 [facility] Blood hemoglobin measurement (mass/volume)Ordered By: Marycarmen Colon on 11-06-2022 Hemoglobin (Bld) [Mass/Vol] 14.7 g/dL 12.0-15.0 [facility] Blood lymphocytes/100 leukoc ytesOrdered By: [facility] on 11-06-2022 Lymphocytes/100 WBC (Bld) 27.1 % 19-41 [facility] Blood monocytes/100 leukocyt esOrdered By: [facility] on 11-06-2022 Monocytes/100 WBC (Bld) 7.7 % 0-10 [facility] Blood platelet mean volumeOr dered By: [facility] on 11-06-2022 Platelet mean volume (Bld) [Entitic vol] 10.1 fL 6.2-12.0 [facility] Determination of erythrocyte mean corpuscular volume (MCV)Ordered By: [facility] on 11-06-2022 MCV (RBC) [Entitic vol] 92.3 fL 81-99 [facility] Hematocrit Auto (Bld) [Volum e fraction]Ordered By: [facility] on 11-06-2022 Hematocrit (Bld) [Volume fraction] 45.7 % 37-47 [facility] - Chemistry and C hemistry - challengeOrdered By: [facility]-2022 ALP [Catalytic activity/Vol] 59 U/L 45-117 [facility] ALT [Catalytic activity/Vol] 21 U/L 13-56 [facility] CO2 [Moles/Vol] 25.0 mmol/L 21.0-32.0 [facility] Globulin (S) [Mass/Vol] 4.3 g/dL 2.2-4.2 [facility] Urea nitrogen/Creatinine [Mass ratio] 11.9 mg/mg 10-20 [facility] - Hematology and Cell countsOrdered By: [facility] on 11-06-2022 Erythrocyte distribution width (RBC) [Entitic vol] 44.6 fL 35.1-43.9 [facility] Erythrocyte distribution width (RBC) [Ratio] 13.2 % 11.6-14.6 [facility] Immature granulocytes/100 WBC (Bld) 0.300 % 0.0-0.9 [facility] Comment on above: IG% - Immature Granu locytes (promyelocytes, myelocytes and metamyelocytes) > 1% indicates that a LEFT SHIFT is Present. MCH (RBC) [Entitic mass] 29.7 pg 27.0-32.0 [facility] Nucleated RBC/100 WBC (Bld) [Ratio] 0 % 0-5 [facility] MCHC Auto (RBC) [Mass/Vol]Or dered By: Marycarmen Colon on 11-06-2022 MCHC (RBC) [Mass/Vol] 32.2 g/dL 32-36 [facility] No Panel InformationOrdered By: Marycarmen Colon on 11-06-2022 Estimated GFR (MDRD) Amer 91 mL/min >60 [facility] Comment on above: GFR Calc Estimated GFR (MDRD) Non-Af Amer 75 mL/min >60 [facility] Comment on above: Non- GFR Calc Platelets bldOrdered By: Tuyet Colon on 11-06-2022 Platelets (Bld) [#/Vol] 355 10*3/uL 150-450 [facility] Serum or plasma albumin braxton urement (mass/volume)Ordered By: Marycarmen Colon on 11-06-2022 Albumin [Mass/Vol] 3.2 g/dL 3.2-5.0 [facility] Serum or plasma albumin/glob ulin mass ratioOrdered By: Marycarmen Colon on 11-06-2022 Albumin/Globulin [Mass ratio] 0.7 {ratio} 0.9-2.4 [facility] Serum or plasma calcium braxton urement (mass/volume)Ordered By: Marycarmen Colon on 11-06-2022 Calcium [Mass/Vol] 9.2 mg/dL 8.5-10.1 [facility] Serum or plasma creatinine m easurement (mass/volume)Ordered By: Marycarmen Colon on 11-06-2022 Creatinine [Mass/Vol] 0.84 mg/dL 0.55-1.02 [facility] Comment on above: The validity of the calculated GFR & GFRAA in patients over 70 years has not been determined. Clinical correlation is essential. Serum or plasma urea nitroge n measurement (mass/volume)Ordered By: Marycarmen Colon on 11-06-2022 Urea nitrogen [Mass/Vol] 10 mg/dL 7-18 [facility] Thin prep Papanicolaou smear with manual screeningOrdered By: Marycarmen Colon on 11-06-2022 Thin prep Papanicolaou smear with manual screening 14 U/L 15-37 [facility] Thin prep Papanicolaou smear with manual screening 8 5-15 [facility] Provider Note - ED v3on 06-02 Provider Note - ED v3 Provider Note: Chart Review: ED NOTES ED NOTES: CC=R NECK/SHOULDER PAIN HPI= 2-year-old female complains of pain in the right side of the neck rating to the right shoulder she apparently had some type of pain shot nerve block around the scapula last week which she states helped transiently. Pain is worse with certain movements of the neck she denies any direct trauma to the area denies any pain in the shoulder itself or radiation down the arm denies any chest pain or shortness of breath there is no other leaving worsening conditions HISTORY OF PRESENTING ILLNESS NICOLASA is a 52 year old Female and was seen by me at 15-Jun-2022 09:54 for a chief complaint of shoulder pain/injury (24 hour history of right shoulder pain that radiates to midline nec. No history. Received cortisone injection in right shoulder last Saturday. +ROM, MSP's intact.)(1). Triage Information: Most recent Vital Sign Value Date Temp (F): 98.2 06-15-2022 09:53 Temp (C): 36.7 06-15-2022 09:53 Heart Rate (beats/min): 76 06-15-2022 09:53 Respirations (breaths/min): 18 06-15-2022 09:53 SpO2 (%): 98 06-15-2022 09:53 BP Systolic (mm Hg): 153 06-15-2022 09:53 BP Diastolic (mm Hg): 91 06-15-2022 09:53 PAST MEDICAL HISTORY ALLERGIES/INTOLERANCES : No Known Allergies HEALTH HISTORY: No documented data. OUTPATIENT MEDICATIONS: Home Medications Review Status for Reconciliation: Incomplete Med Status: Incomplete Medication History No documented data. SIGNIFICANT EVENTS: No documented data. REVIEW OF SYSTEMS CONSTITUTIONAL: POSITIVE for: malaise Negative for: chills and fever ENMTThroat/Neck: POSITIVE for: neck pain and neck stiffness CARDIOVASCULAR: Negative for: chest pain and palpitations RESPIRATORY: Negative for: cough and dyspnea GASTROINTESTINAL: Negative for: abdominal pain, nausea and vomiting; MUSCULOSKELETAL: POSITIVE for: neck pain NEUROLOGICAL: POSITIVE for: sensory deficits Negative for: altered mental status, dizziness and loss of function; All other systems reviewed and are negative PHYSICAL EXAM CONSTITUTIONAL: Well appearing, well nourished, awake, alert, oriented to person, place, time/situation and in mild amount of discomfort currently HENMT: Airway patent, ears with clear tympanic membranes bilaterally. Nasal mucosa clear. Mouth with normal mucosa. Throat has no vesicles, no oropharyngeal exudates and uvula is midline. Face with no lymph node enlargement. Neck shows tenderness over the lower C5-6 area with a trigger point at this time she is able to flex extend although some mild discomfort she is able to rotate without difficulty EYES: Clear bilaterally, pupils equal, round and reactive to light. CARDIOVASCULAR: Normal rate, regular rhythm. Heart sounds S1, S2. No murmurs, rubs or gallops. PMI non-displaced. RESPIRATORY: Breath sounds clear and equal bilaterally. GASTROINTESTINAL: Abdomen soft, non-distended, no rebound, no guarding. Bowel sounds normal in all 4 quadrants. MUSCULOSKELETAL: Right shoulder shows no tenderness full range of motion both active and passive without any swelling NEUROLOGICAL: Patient awake alert cooperative full motor function she has some subjective paresthesias around the shoulder but none down the arm itself SKIN: Skin normal color for race, warm, dry and intact. No evidence of trauma. No rashes or petechiae were present PSYCHIATRIC: Alert and oriented to person, place, time/situation. normal mood and affect. No apparent risk to self or others. HEME/LYMPH: No adenopathy or splenomegaly. No cervical, supraclavicular or inguinal lymphadenopathy. MDM MDM/ED COURSE: Nixon diagnoses include cervical radiculopathy cervical strain muscle spasm. X-ray studies 6 views of the cervical spine show degenerative changes with spurs at this time. Treatment here included Toradol 60 mg IM and Solu-Medrol 125 g IM. Findings are consistent with a cervical radiculopathy patient will be started on prednisone Motrin and Percocet for pain and referred to pain management for possible nerve block EMG studies as well as MRI DISPOSITION Diagnosis/Annotation: ED Dx Name:Cervical radiculopathy, acute Code:M54.12 Name:DJD (degenerative joint disease), cervical Code:M47.812 Disposition: discharged Type: home CONSULT CRITICAL CARE TIME Is this a critically ill patient: no Electronic Signatures: Dustin Cisneros) (Signed 15-Jun-2022 11:34) Authored: ED Notes, HPI, PMH, ROS, PE, MDM/ED Course, Clinical Impression, Attestation, Chart Review, Scores Last Updated: 15-Jun-2022 11:34 by Dustin Cisneros) References: 1. Data Referenced From "Triage - ED" 15-Jun-2022 09:53 Normal [facility] Risk Screen - Adult Emergenc yon 06-15-2022 Risk Screen - Adult Emergency Preferred Language: Preferred Language: Preferred Language for Discussing Health Care (patient/designee)Engl anisa Patient Preferred Pharmacy: Patient Preferred Pharmacy Statement: I have reviewed and updated the patient's preferred pharmacy selection for today's visit. Advanced Directives: Advance Directive/DNRno Advance Directive Information Givenpatient/family declined Family Violence Adult: Abuse Screen: Are you or have you been threatened or abused physically, emotionally, or sexually by anyoneno Learning Assessment (Patient): Learning Assessment (Patient): Patient is Able to be Assessed for Learningyes Factors Influencing Readiness to Learnpain Factors that Impact Ability to Learnnone Devices/Methods Used to Communicatenone Learning Preferencesaudio Cultural Considerationsnone Developmental Considerationsnone Zoroastrian Considerationsnone Learning Assessment (Other Learner): Learning Assessment (Other Learner): Other learner availableno Pressure Injury/TB/Substance: Pressure Injury: Pressure Injury Present on Admissionno Do you have a coughno Smoking Statusnever smoker Alcohol Usedenies Drug Usedenies Admission Risk Screen: Significant IndicatorsComplete CAGE: CAGE: Is this an injured patient at a Trauma Center ([facility] [place] [place]): no Electronic Signatures: Tello Gillis (RN) (Signed 15-Jun-2022 09:57) Authored: Preferred Language, Patient Preferred Pharmacy, Advanced Directives, Family Violence Adult, Learning Assessment (Patient), Learning Assessment (Other Learner), Pressure Injury/TB/Substance, Pressure Injury, CAGE Last Updated: 15-Jun-2022 09:57 by Tello Gillis (RN) [facility] SPINE, CERVICAL MIN 4 VIEWSo n 06-15-2022 SPINE, CERVICAL MIN 4 VIEWS STUDY: Cervical Spine Radiographs; 06/15/2022, 9:43AM. INDICATION: Neck and shoulder pain, no injury. Cervicalgia. COMPARISON: None. ACCESSION NUMBER(S): [id number] ORDERING CLINICIAN: DUSTIN CISNEROS MD TECHNIQUE: Six view(s) of the cervical spine. FINDINGS: Mild straightening of cervical lordosis. Small osteophytosis. No significant soft tissue abnormality. Impression: No acute bony abnormality demonstrated by this technique. In the absence of any contraindications to magnetic resonance imaging, MRI may be helpful for further evaluation should there be specific neurologic complaint. Signed by Jamari Thakur D.O. Electronically signed by: JAMARI THAKUR DO [facility] Triage - EDon 06-15-2022 Triage - ED Quick Triage: Are You no Have You Given In The Last 6 Weeksno Are You Currently Breastfeedingno Chart Review: ARRIVAL INFORMATION Mode of Arrival: private vehicle CHIEF COMPLAINT NICOLASA MCDONALD is a Female patient with a chief complaint of shoulder pain/injury (24 hour history of right shoulder pain that radiates to midline nec. No history. Received cortisone injection in right shoulder last Saturday. +ROM, MSP's intact.). Triage Date/Time: 15-Jun-2022 09:53 KRISTIE: 4 Pain Rating (0-10): 2 = Mild Vital Signs: Temperature: 98.2F ( 36.7C) taken temporal Blood Pressure: 153/91 Mean: Heart Rate: 76 Respiratory Rate: 18 Pulse Oximetry: 98% on room air, no respiratory support. Height: 5 feet 4.00 inches. 162.5 CM Weight: 165.3 pounds. Calculated 75.0 kg. (stated) Calculated BMI (kg/m2): 28.402 Calculated BSA (m2) 1.84 Catina Coma Scale: Best Eye Response: (E4) spontaneous Best Motor Response: (M6) obeys commands Best Verbal Response: (V5) oriented Newport Score: 15 Cough lasting greater than 3 weeks: no Patient immunocompromised related to: N/A Allergies: no Patient has homicidal thoughts: no Risk Screens Suicide Risk Screen In the Past Month: Have you wished you were or wished you could go to sleep and not wake up no In the Past Month: Have you had any actual thoughts of killing yourself no In Your Lifetime: Have you ever done anything, started to do anything, or prepared to do anything to end your life no Interventions: Hardy Fall Interventions: LOW INTERVENTIONS: *patient oriented to surroundings and call system, * patient/family falls education completed and documented, *patients fall status communicated during bedside handoff, *whiteboard updated, *mode of toileting discussed with patient, *bed in low position with brakes locked, *call light in reach, * non-skid footwear TRAVEL HISTORY Travel History Coronavirus Screening: no exposure or symptoms Travel Exposure History: NO travel to International locations in the past 30 days PAIN Pain Scale Used: MANDO Pain Rating (0-10): 2 = Mild Past Medical History: Past Medical History Reviewedno Electronic Signatures: Tello Gillis (RN) (Signed 15-Jun-2022 09:56) Entered: Risk Screens, Pain, Travel History, Chart Review, Scores, Past Medical History Authored: Quick Triage, Risk Screens, Pain, Travel History, Chart Review, Scores, Past Medical History Last Updated: 15-Jun-2022 09:56 by Tello Gillis (RN) [facility] No Panel Informationon 10-31 Estimated GFR (MDRD) Amer 77 mL/min >60 [facility] Work Phone: Comment on above: GFR Calc Estimated GFR (MDRD) Non-Af Amer 64 mL/min >60 [facility] Work Phone: Comment on above: Non- GFR Calc Serum or plasma creatinine m easurement (mass/volume)on 10-31-2021 Creatinine [Mass/Vol] 0.97 mg/dL 0.55-1.02 [facility] Work Phone: Comment on above: The validity of the calculated GFR & GFRAA in patients over 70 years has not been determined. Clinical correlation is essential. CORONAVIRUS PCR [CCL]on 11-02 REF LAB REPORT Negative Normal [facility] Comment on above: Performed By: #### [id number] #### [facility],[address] [place] [address] COVID 19 Result PRECINCT POLICE SERGEANT Negative Normal [facility] Comment on above: Result Comment: Nega tive for COVID19 (SARS CoV2) by PCR. This test was developed and its performance characteristics determined by [facility]'s [facility] Pathology and Laboratory Medicine [place]. This test has been authorized by FDA under an Emergency Use Authorization (EUA). This test has been validated in accordance with the FDA's Guidance Document Policy for Diagnostics Testing in Laboratories Certified to Perform High Complexity Testing under CLIA prior to Emergency use Authorization for Coronavirus Disease 2019 during the Public Health Emergency" issued on May 02, 2019. [address] [place] [address] Cesar Diop III, M.D. [id number] Performed By: #### [id number] #### [place] [id number] COVID 19 Source [employer] POLICE [employer]GEANT Nasopharyngeal Swab Normal [facility] Comment on above: Result Comment: Toya ected on 11/15 AT 0518: Previously reported as PRECINCT POLICE SERGEANT SWAB Performed By: #### 2 [id number] #### [facility],[address] [place], [place] [id number] Coronavirus 2019on 0 COVID 19 Result PRECINCT POLICE SERGEANT Normal Negative for COVID19 (SARS CoV2) by PCR. [facility] Comment on above: Result Comment: Nega tive for This test was developed and its performance characteristics determined by [facility] Pathology and Laboratory [facility] [place]. This test has been authorized by FDA under an Emergency Use Authorization (EUA). This test has been validated in accordance with the FDA's Guidance Document "Policy for Diagnostics Testing in Laboratories Certified to Perform High Complexity Testing under CLIA prior to Emergency use Authorization for Coronavirus Disease 2019 during the Public Health Emergency" issued on May 02, 2019. COVID19 (SARS This test was developed and its performance characteristics determined by [facility] Pathology and Laboratory Medicine [place]. This test has been authorized by FDA under an Emergency Use Authorization (EUA). This test has been validated in accordance with the FDA's Guidance Document "Policy for Diagnostics Testing in Laboratories Certified to Perform High Complexity Testing under CLIA prior to Emergency use Authorization for Coronavirus Disease 2019 during the Public Health Emergency" issued on May 02, 2019. CoV2) by PCR. This test was developed and its performance characteristics determined by [facility] [place]. This test has been authorized by FDA under an Emergency Use Authorization (EUA). This test has been validated in accordance with the FDA's Guidance Document "Policy for Diagnostics Testing in Laboratories Certified to Perform High Complexity Testing under CLIA prior to Emergency use Authorization for Coronavirus Disease 2019 during the Public Health Emergency" issued on May 02, 2019. COVID 19 Source PRECINCT POLICE SERGEANT Normal [facility] Comment on above: Result Comment: Naso pharyngeal Corrected on 11/15 AT 0518: Previously reported as PRECINCT POLICE SERGEANT SWAB Swab Corrected on 11/15 AT 0518: Previously reported as PRECINCT POLICE SERGEANT SWAB Vital Signs Date Time Vital Sign Value Performing Clinician Facility 03-20-2024 09:05-0500 Body height 162.8 cm Johanny Cassandra PEDIATRIC CARDIOLOGIST.[facility] Work Phone: [facility] 03-20-2024 09:05-0500 Body mass index (BMI) [Ratio] 27.97 kg/m2 Johanny Cassandra PEDIATRIC CARDIOLOGIST.[facility] Work Phone: [facility] 03-20-2024 09:05-0500 Body weight 74.12 kg Johanny Malin PEDIATRIC CARDIOLOGIST.[facility] Work Phone: [facility] 03-20-2024 09:05-0500 Diastolic blood pressure 68 mm[Hg] Johanny Malin PEDIATRIC CARDIOLOGIST.[facility] Work Phone: [facility] 03-20-2024 09:05-0500 Systolic blood pressure 124 mm[Hg] Johanny Cassandra PEDIATRIC CARDIOLOGIST.[facility] Work Phone: [facility] 04-23-2023 09:51-0500 Body temperature 97.3 [degF] Magaly Pineda MD Work Phone: [facility] 04-23-2023 09:51-0500 Body weight 72.48 kg Magaly Pineda MD Work Phone: [facility] 06-15-2022 13:45-0400 Diastolic blood pressure 86 mm[Hg] Magaly Farris Other Phone: [facility] 06-15-2022 13:45-0400 Heart rate 71 /min Magaly Farris Other Phone: [facility] 06-15-2022 13:45-0400 Respiratory rate 18 /min Magaly Farris Other Phone: [facility] 06-15-2022 13:45-0400 SaO2% (BldA) [Mass fraction] 98 % Magaly Farris Other Phone: [facility] 06-15-2022 13:45-0400 Systolic blood pressure 138 mm[Hg] Magaly Farris Other Phone: [facility] 06-15-2022 11:53-0400 Body height 162.5 cm Magaly Farris Other Phone: [facility] 06-15-2022 11:53-0400 Body temperature 98.06 [degF] Magaly Farris Other Phone: [facility] 06-15-2022 11:53-0400 Body weight 75 kg Magaly Farris Other Phone: [facility] 12-28-2021 13:55-0400 Body height 162 cm Johanny Malin PEDIATRIC CARDIOLOGIST.QUALITY ASSURANCE NURSE Work Phone: [facility] 12-28-2021 13:55-0400 Body weight 73.48 kg Johanny Malin PEDIATRIC CARDIOLOGIST.QUALITY ASSURANCE NURSE Work Phone: [facility] 12-28-2021 13:55-0400 Diastolic blood pressure 72 mm[Hg] Johanny Malin PEDIATRIC CARDIOLOGIST.QUALITY ASSURANCE NURSE Work Phone: [facility] 12-28-2021 13:55-0400 Systolic blood pressure 132 mm[Hg] Johanny Malin PEDIATRIC CARDIOLOGIST.QUALITY ASSURANCE NURSE Work Phone: [facility] Encounters Encounter Date Encounter Type Care Provider Facility Start: 12-18-2024 ambulatory Johanny Malin [employer]ICE [employer]GEANT Facili ty:[facility] Start: 03-20-2024 End: 03-20-2024 Patient encounter procedure Johanny Cassandra PEDIATRIC CARDIOLOGIST.QUALITY ASSURANCE NURSE Work Phone: OB/Gynecology Comment on above: Encounter for gyneco logical examination (general) (routine) without abnormal findings (Primary Dx); Encounter for screening for human papillomavirus (HPV); Pap smear for cervical cancer screening; Encounter for screening mammogram for breast cancer; Encounter for surveillance of contraceptive pills Start: 03-20-2024 End: 03-20-2024 Patient encounter status Johanny Malinluis FREEMANN.QUALITY ASSURANCE NURSE Work Phone: [facility] Start: 03-20-2024 End: 03-20-2024 ambulatory JOHANNY HOOPERF Facility:[facility] Start: 03-20-2024 Encounter for gynecological examination (general) (routine) without abnormal findings JOHANNY TRUJILLO [facility] Start: 01-16-2024 ambulatory [facility] Facility:[facility] Start: 12-27-2023 [facility] Facility:[facility] Start: 04-23-2023 End: 04-23-2023 Clinical Support Marquis White Work Phone: [facility] Comment on above: Abnormal auditory pe rception of both ears Start: 04-23-2023 End: 04-23-2023 Office outpatient new 45 minutes Magaly Pineda MD Work Phone: [facility] Comment on above: Vertigo (Primary Dx) ; Abnormal auditory perception of both ears Start: 04-22-2023 Orders Only Sinai Howe MA [facility] Start: 01-01-2023 Refill Johanny Malin PEDIATRIC CARDIOLOGIST.QUALITY ASSURANCE NURSE Work Phone: OB/Gynecology Comment on above: Refill Request Start: 11-30-2022 Refill Johanny Malin PEDIATRIC CARDIOLOGIST.QUALITY ASSURANCE NURSE Work Phone: OB/Gynecology Comment on above: Refill Request Start: 11-20-2022 End: 11-20-2022 ambulatory [facility] Work Phone: Start: 11-20-2022 End: 11-20-2022 Patient encounter procedure [facility] Work Phone: Start: 11-06-2022 End: 11-06-2022 Patient encounter procedure [facility] Start: 06-15-2022 End: 06-15-2022 Emergency department patient visit Dustin Cisneros [facility] Emergency 01 Start: 12-28-2021 End: 12-28-2021 Patient encounter procedure Johanny Trujillo APRN.QUALITY ASSURANCE NURSE Work Phone: OB/Gynecology Comment on above: Encounter for gyneco logical examination (general) (routine) without abnormal findings (Primary Dx); Encounter for surveillance of contraceptive pills Start: 12-28-2021 End: 12-28-2021 Patient encounter status Johanny Trujillo APRN.QUALITY ASSURANCE NURSE Work Phone: OB/Gynecology Start: 11-14-2021 End: 11-14-2021 ambulatory [facility] Work Phone: Start: 11-14-2021 End: 11-14-2021 Patient encounter procedure [facility] Start: 10-31-2021 End: 10-31-2021 ambulatory [facility] Work Phone: Start: 10-31-2021 End: 10-31-2021 Patient encounter procedure [facility] Start: 11-14-2019 End: 11-14-2019 Patient encounter procedure KATI LAWSON [facility] Start: 12-03-2017 Patient encounter BRIANNA Guillermo lity:[facility] Procedures Date Procedure Procedure Detail Performing Clinician Start: 11-20-2022 Screening mammography Start: 11-14-2021 Screening mammography Start: 08-22-2019 Mammography Johanny gill PEDIATRIC CARDIOLOGIST.QUALITY ASSURANCE NURSE Work Phone: Plan of Treatment Date Care Activity Detail Author Start: 10-26-2026 Tetanus vaccination Tetanus: Every 10yrs [facility] Start: 10-26-2026 Urine microalbumin profile DTaP,Tdap,Td Vaccine (2 - Td or Tdap) [facility] Start: 11-25-2024 Screening for malignant neoplasm of breast Mammogram Screening [facility] Start: 11-05-2024 HPV TESTING HPV TESTING [facility] Start: 11-05-2024 PAP TESTING PAP TESTING [facility] Start: 11-05-2024 Screening for malignant neoplasm of cervix Cervical Cancer Screening [facility] Start: 11-16-2023 Screening for malignant neoplasm of colon [facility] Start: 11-03-2023 Covid-19 Vaccine ( season) Covid-19 Vaccine () [facility] Start: 11-03-2023 Influenza vaccination Influenza Vaccine (#1) [facility] Start: 04-23-2023 End: 04-23-2023 Patient encounter procedure 04/23/2023 9:30 AM EST Office Visit [facility] [address] [place] [address] Magaly Pineda MD [facility] [address] [place] [id number] [facility] Start: 11-02-2022 COVID-19 Vaccine ( season) COVID-19 Vaccine ( season) [facility] Start: 11-02-2022 Influenza vaccination [facility] Start: 03-04-2022 Depression Assessment Depression Assessment [facility] Start: 11-02-2021 Influenza vaccination INFLUENZA (#1) [facility] Start: 03-04-2021 DEPRESSION ASSESSMENT DEPRESSION ASSESSMENT [facility] Start: 08-21-2020 Mammography [facility] Start: 2020 Administration of herpes zoster vaccine Zoster Vaccines (1 of 2) [facility] Start: 2020 Pneumococcal Vaccine: 50+ (2 of 2 - PPSV23) Pneumococcal Vaccine: 50+ (2 of 2 - PPSV23) [facility] Start: 2020 Screening for malignant neoplasm of colon Flexible sigmoidoscopy [facility] Start: 2020 SHINGRIX VACCINE (1 of 2) SHINGRIX VACCINE (1 of 2) [facility] Start: 12-21-2018 DIABETES SCREEN DIABETES SCREEN [facility] Start: 12-21-2018 Diabetes Screening Diabetes Screening [facility] Start: 01-10-2017 End: 01-10-2017 Appointment Appointment [facility] Work Phone: Start: 05-20-2015 COLOGUARD (FIT-DNA) COLOGUARD (FIT-DNA) [facility] Start: 05-20-2015 Colonoscopy COLONOSCOPY [facility] Start: 05-20-2015 COLORECTAL CANCER SCREENING COLORECTAL CANCER SCREENING [facility] Start: 05-20-[address] COLONOGRAPHY [facility] Start: 05-20-2015 FECAL OCCULT BLOOD FECAL OCCULT BLOOD [facility] Start: 05-20-2015 Lipid 1996 panel - Serum or Plasma Lipid Screening [facility] Start: 05-20-2015 Lipid panel Lipid Screening [facility] Start: 05-20-2015 LIPID SCREEN LIPID SCREEN [facility] Start: 05-20-2015 Screening for malignant neoplasm of colon [facility] Start: 05-20-2015 SIGMOIDOSCOPY SIGMOIDOSCOPY [facility] Start: 2010 Screening for malignant neoplasm of breast Mammogram [facility] Start: 05-20-1991 Screening for malignant neoplasm of cervix Pap Smear [facility] Start: 1989 Hepatitis B Vaccine (1 of 3 - 19+ 3-dose series) Hepatitis B Vaccine (1 of 3 - 19+ 3-dose series) [facility] Start: 1989 Urine microalbumin profile [facility] Start: 1988 Anxiety Screening Anxiety Screening [facility] Start: 1988 Depression Screening Depression Screening [facility] Start: 1988 HEPATITIS C SCREENING HEPATITIS C SCREENING [facility] Start: 1988 Hepatitis C screening Hepatitis C Screening [facility] Start: 1985 HIV screening HIV Screening [facility] Start: 1982 Depression screening using PHQ-9 (Patient Health Questionnaire 9) score Depression Screening (PHQ-2/9) [facility] Start: 1973 History and physical examination, annual for health maintenance Wellness Visit [facility] Start: 1970 COVID-19 VACCINE (#1) COVID-19 VACCINE (#1) [facility] Start: 1970 HEPATITIS B (1 of 3 - 3-dose series) HEPATITIS B (1 of 3 - 3-dose series) [facility] Start: 1970 Hepatitis B Vaccine (1 of 3 - 3-dose series) Hepatitis B Vaccine (1 of 3 - 3-dose series) [facility] Start: 1970 Screening for malignant neoplasm of colon [facility] Start: 1970 Tetanus vaccination Tetanus: Every 10yrs [facility] PAP TEST PAP TEST Lab [facility] Encounter for gynecological examination (general) (routine) without abnormal findings Encounter for screening for human papillomavirus (HPV) Pap smear for cervical cancer screening 03/20/2024 9:45 AM EST [facility] Work Phone: [facility] Immunizations Immunization Date Immunization Notes Care Provider Fa tia 12-05-2019 influenza virus vacc ine, unspecified formulation Johanny Malin PEDIATRIC CARDIOLOGIST.QUALITY ASSURANCE NURSE Work Phone: [facility] 02-15-2009 influenza virus vacc ine, unspecified formulation Johanny Malin PEDIATRIC CARDIOLOGIST.QUALITY ASSURANCE NURSE Work Phone: [facility] 02-15-2009 novel influenza-H1N1 -09, all formulations Johanny Cassandra PEDIATRIC CARDIOLOGIST.QUALITY ASSURANCE NURSE Work Phone: [facility] Payers Date Payer Category Payer Self-pay [id number] 2019 Private Health [facility] [id number] 2019-Present [phone] [address] [address] [place] [address] HMO [id number] 2019 Unknown 2019 Private Health Insurance [id number] 2013 Unknown PAUL [id number] 1970 Unknown [id number] 1970 Unknown [id number] 1970 Unknown [id number] 1970 Unknown [id number] Unknown [id number] Unknown [facility] [id number] Unknown [id number] Unknown [id number] Unknown [id number] Social History Date Type Detail Facility Start: 11-28-2020 Tobacco smoking status [facility] Unknown if ever smoked [facility] Start: 1970 Sex Assigned At Female [facility] Start: 12-28-2021 End: 03-20-2024 Tobacco smoking status FLIS Ex-smoker [facility] Work Phone: Start: 04-04-1991 End: 04-04-2006 History of tobacco use Current smoker [facility] Work Phone: Start: 04-04-1991 End: 04-04-2006 History of tobacco use Cigarette Smoker [facility] Work Phone: Start: 12-28-2021 End: 07-18-2022 Cigarettes smoked current (pack per day) - Reported 0.5 [facility] Work Phone: Start: 12-28-2021 End: 03-20-2024 Tobacco use and exposure Smokeless tobacco non-user [facility] Work Phone: Start: 12-28-2021 End: 07-18-2022 Alcohol intake Current non-drinker of alcohol (finding) [facility] Start: 11-06-2019 History SDOH Social Connections Phone 2 [facility] Start: 11-06-2019 History SDOH Social Connections Get Together 1 [facility] Start: 11-06-2019 History SDOH Social Connections Restorationist 3 [facility] Start: 11-06-2019 History SDOH Physical Activity DPW 7 [facility] Start: 11-06-2019 History SDOH Financial 5 [facility] Start: 11-06-2019 Education 13 [facility] Start: 12-18-2021 End: 12-28-2021 Exposure to SARS-CoV-2 (event) Not sure [facility] Work Phone: Start: 11-06-2019 End: 07-18-2022 Social connection and isolation panel [facility] Work Phone: Do you belong to any clubs or organizations such as baptist groups, unions, fraternal or athletic groups, or school groups? No [facility] Work Phone: Are you now , , , , never or living with a partner? [facility] Work Phone: How hard is it for y ou to pay for the very basics like food, housing, medical care, and heating Not hard at all [facility] Work Phone: Do you feel stress - tense, restless, nervous, or anxious, or unable to sleep at night because your mind is troubled all the time - these days [OSQ] Only a little [facility] Work Phone: (I/We) worried alysa er (my/our) food would run out before (I/we) got money to buy more. Never true [facility] Work Phone: Start: 12-06-2020 Gender identity Identifies as female gender (finding) [facility] Start: 12-06-2020 Sexual orientation Heterosexual (finding) [facility] Start: 1970 Sex Assigned At Not on file [facility] Start: 04-23-2023 Tobacco smoking status NHIS Never smoked tobacco [facility] Start: 04-23-2023 Alcohol intake Lifetime non-drinker (finding) [facility] Start: 03-20-2024 Alcoholic beverage intake [facility] 12-28-2021 to 03-20-2024 Johanny Trujillo, REYES.QUALITY ASSURANCE NURSE - 03/20/2024 8:55 AM Marquis Field AuD - 04/23/2023 10:17 AM Magaly Abrams MD - 04/23/2023 9:56 AM Sinai Stark MA - 04/23/2023 9:47 AM EST Note Date & Type Note Facility 03-20-2024 Note HNO ID: [id number] Author: JOHANNY TRUJILLO APRN.QUALITY ASSURANCE NURSE Service: ? Author Type: Nurse Practitioner Type: Progress Notes Filed: 03/20/2024 09:38 Note Text: Patient declined junior software developerLisa Baldwin is a 53 year old who presents for an annual gynecologic exam without complaints. She did stop OCP for a few months but was getting 2 periods a month so she restarted the OCP Postmenopausal: No. Menstrual cycle, 22-24, five days flow HRT use: Yes, OCP (currently ran out March 2024) Still get period: Yes Bleeding amount bothersome: No Bleeding between periods: Yes Period symptoms: Mood change Menopause symptoms: None control frequency: Always HPV vaccine: No; Last pap smear: 11/06/2019, negative History of abnormal pap: Yes. 1999 approx Cone biopsy: Yes: 1999 approx Bothersome pelvic pain: No Last mammogram: 2023 normal, [facility] History of abnormal mammogram: No OB History T0 L1 SAB0 IAB0 Ectopic0 Multiple0 Live Births0 Install And Repair Technician History LMP: 03/10/2024 (Exact Date), Having periods Age at Menarche: 13 Age at First : Age at Menopause: Install And Repair Technician History Comments: Sexual Activity: Yes; Male Contraception: Tubal Ligation Menstrual Tracking History Flowsheet Row Office Visit from 03/20/2024 in OB/Gynecology Period Cycle (Days) 2 Period Duration (Days) 6 Menstrual Flow Moderate PAST MEDICAL HISTORY Diagnosis Date Benign heart murmur Congenital abnormal of uterus 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 Herpes zoster 2006 Baker product of IVF PAST SURGICAL HISTORY Procedure Laterality Date AUGMENTATION MAMMAPLASTY 03/04/2000 CONIZATION CERVIX W/WO DANDC RPR ELTRD EXC APPROX 1999 LEEP-Cervix HYSTEROSCOPY 12/01/2020 DANDC, incomplete polypectomy LIG/TRNSXJ FLP TUBE ABDL/VAG APPR UNI/BI Tubal ligation REMOVAL OF UTERUS LESION, MYOMECTOMY-AB laparoscopic with DANJUAN FAMILY HISTORY Problem Relation Age of Onset Coronary Artery Disease Father Diabetes Father Seizures Sister No Known Problems Sister No Known Problems Sister Pancreatic Cancer Brother No Known Problems Brother Breast Cancer Maternal Aunt No Known Problems Son SOCIAL HISTORY Social History Tobacco Use Smoking status: Former Current packs/day: 0.00 Average packs/day: 0.5 packs/day for 15.0 years (7.5 ttl pk-yrs) Types: Cigarettes Start date: 04/04/1991 Quit date: 04/04/2006 Years since quittin.9 Smokeless tobacco: Never Vaping Use Vaping status: Never Used Substance Use Topics Alcohol use: Not Currently Drug use: Never REVIEW OF SYSTEMS Abdomen: No abdominal pain, nausea, vomiting, diarrhea, or constipation. No bloating, early satiety, indigestion, or increased flatulence. Bladder: No dysuria, gross hematuria, urinary frequency, urinary urgency, or incontinence Breast: No breast lumps, nipple d/c, overlying skin changes, redness or skin retraction Allergies and current medication updated:Yes SENSITIVE EXAM: The sensitive examination was discussed with the Patient or Patient's Authorized Court Abstractor. As applicable, any other physician, advance practice provider, medical student, or other health professional student that will be observing or involved in the sensitive examination for educational or training purposes was discussed with the Patient or Authorized Court Abstractor. The Patient or Authorized Court Abstractor has agreed to proceed with the sensitive examination. (Sensitive examination includes inspection and/or palpation of the breasts, pelvis, prostate and anorectal regions). EXAM: BP 124/68 Ht 5' 4.094" (1.63m) Wt 163 lb 6.4 oz (74.1kg) LMP 03/10/2024 BMI 27.97 kg/(m2). GENERAL: pleasant, female in no apparent distress HEENT: Normocephalic, atraumatic, mucus membranes moist, and no lesions NECK: Supple, full range of motion, no adenopathy, and thyroid normal DERMATOLOGY: Normal, without lesions, non-icteric, and non-hirsute BREAST: soft, non-tender, symmetric, no dominant mass, normal nipple-areolar complex, no lymphadenopathy, and no nipple discharge CHEST: Normal inspiratory effort ABDOMEN: soft, non-tender, and no masses PELVIC: external genitalia normal, normal Bartholin's glands, urethra, [place]'s glands, no vulvar lesions, no cervical lesions, physiologic discharge present, normal appearing perineal body and perianal region BIMANUAL: uterus normal size, shape and consistency, no adnexal masses, and non-tender RECTOVAGINAL: deferred. NEURO: alert and oriented x3,exam grossly non-focal EXTREMITIES: normal ASSESSMENT/PLAN: 1) Health maintenance: Pap done with HPV. Mammogram ordered Mammogram up to date Nutrition, exercise and routine health maintenance exams reviewed. Calcium/Vitamin D supplementation information provided. Colon cancer screening: patient to discuss with PCP- due for cologuard 2) Follow up one year or (more content not included)... [facility] 03-20-2024 History of Present illness Narrative Patient declined junior software developer. Nicolasa is a 53 year old who presents for an annual gynecologic exam without complaints. She did stop OCP for a few months but was getting 2 periods a month so she restarted the OCP Postmenopausal: No. Menstrual cycle, 22-24, five days flow HRT use: Yes, OCP (currently ran out March 2024) Still get period: Yes Bleeding amount bothersome: No Bleeding between periods: Yes Period symptoms: Mood change Menopause symptoms: None control frequency: Always HPV vaccine: No; Last pap smear: 11/06/2019, negative History of abnormal pap: Yes. 1999 approx Cone biopsy: Yes: 1999 approx Bothersome pelvic pain: No Last mammogram: 2023 normal, [facility] History of abnormal mammogram: No OB History T0 L1 SAB0 IAB0 Ectopic0 Multiple0 Live Births0 Install And Repair Technician History LMP: 03/10/2024 (Exact Date), Having periods Age at Menarche: 13 Age at First : Age at Menopause: Install And Repair Technician History Comments: Sexual Activity: Yes; Male Contraception: Tubal Ligation Menstrual Tracking History Flowsheet Row Office Visit from 03/20/2024 in OB/Gynecology Period Cycle (Days) 2 Period Duration (Days) 6 Menstrual Flow Moderate PAST MEDICAL HISTORY Diagnosis Date Benign heart murmur Congenital abnormal of uterus 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 Herpes zoster 2006 product of IVF PAST SURGICAL HISTORY Procedure Laterality Date AUGMENTATION MAMMAPLASTY 03/04/2000 CONIZATION CERVIX W/WO D&C RPR ELTRD EXC APPROX 1999 LEEP-Cervix HYSTEROSCOPY 12/01/2020 D&C, incomplete polypectomy LIG/TRNSXJ FLP TUBE ABDL/VAG APPR UNI/BI Tubal ligation REMOVAL OF UTERUS LESION, MYOMECTOMY-AB laparoscopic with D&C FAMILY HISTORY Problem Relation Age of Onset Coronary Artery Disease Father Diabetes Father Seizures Sister No Known Problems Sister No Known Problems Sister Pancreatic Cancer Brother No Known Problems Brother Breast Cancer Maternal Aunt No Known Problems Son SOCIAL HISTORY Social History Tobacco Use Smoking status: Former Current packs/day: 0.00 Average packs/day: 0.5 packs/day for 15.0 years (7.5 ttl pk-yrs) Types: Cigarettes Start date: 04/04/1991 Quit date: 04/04/2006 Years since quittin.9 Smokeless tobacco: Never Vaping Use Vaping status: Never Used Substance Use Topics Alcohol use: Not Currently Drug use: Never REVIEW OF SYSTEMS Abdomen: No abdominal pain, nausea, vomiting, diarrhea, or constipation. No bloating, early satiety, indigestion, or increased flatulence. Bladder: No dysuria, gross hematuria, urinary frequency, urinary urgency, or incontinence Breast: No breast lumps, nipple d/c, overlying skin changes, redness or skin retraction Allergies and current medication updated:Yes SENSITIVE EXAM: The sensitive examination was discussed with the Patient or Patient's Authorized Court Abstractor. As applicable, any other physician, advance practice provider, medical student, or other health professional student that will be observing or involved in the sensitive examination for educational or training purposes was discussed with the Patient or Authorized Court Abstractor. The Patient or Authorized Court Abstractor has agreed to proceed with the sensitive examination. (Sensitive examination includes inspection and/or palpation of the breasts, pelvis, prostate and anorectal regions). EXAM: BP 124/68 Ht 5' 4.094" (1.63m) Wt 163 lb 6.4 oz (74.1kg) LMP 03/10/2024 BMI 27.97 kg/(m^2). GENERAL: pleasant, female in no apparent distress HEENT: Normocephalic, atraumatic, mucus membranes moist, and no lesions NECK: Supple, full range of motion, no adenopathy, and thyroid normal DERMATOLOGY: Normal, without lesions, non-icteric, and non-hirsute BREAST: soft, non-tender, symmetric, no dominant mass, normal nipple-areolar complex, no lymphadenopathy, and no nipple discharge CHEST: Normal inspiratory effort ABDOMEN: soft, non-tender, and no masses PELVIC: external genitalia normal, normal Bartholin's glands, urethra, [place]'s glands, no vulvar lesions, no cervical lesions, physiologic discharge present, normal appearing perineal body and perianal region BIMANUAL: uterus normal size, shape and consistency, no adnexal masses, and non-tender RECTOVAGINAL: deferred. NEURO: alert and oriented x3,exam grossly non-focal EXTREMITIES: normal ASSESSMENT/PLAN: 1) Health maintenance: Pap done with HPV. Mammogram ordered Mammogram up to date Nutrition, exercise and routine health maintenance exams reviewed. Calcium/Vitamin D supplementation information provided. Colon cancer screening: patient to discuss with PCP- due for cologuard 2) Follow up one year or sooner as needed Johanny Trujillo APRN.QUALITY ASSURANCE NURSE documented in this encounter [facility] 04-23-2023 History of Present illness Narrative Images from the original note were not included. [facility] [address] [id number] Name: Nicolasa Mcdonald : 1970 Date: 04/23/23 History & Purpose of Evaluation: Nicolasa Mcdonald was seen today for audiologic assessment at the request of Magaly Pineda MD. Ms. Mcdonald reported an episode of vertigo in December, lasting one day. She also reported a feeling of lightheadedness around the same time. The vertigo has resolved, but the lightheaded feeling remains. She feels relief when she "lays off exercise". Please see below for other pertinent case history information as reported by Ms. Mcdonald. Otologic Symptoms R L Noise Exposure Y N Medical Y N Hearing Loss [] [] Occupational [] [x] Hypertension [] [x] Tinnitus [x] [x] Recreational-past, with hearing protection [x] [] Diabetes [] [x] Otalgia-occasional and brief [x] [x] [] [x] Hypercholesterolemia [] [x] Otorrhea [] [] Heart Disease [] [x] Aural Fullness [] [] Family History-mother [x] [] Stroke [] [x] Meniere s Disease [] [] Cancer [] [x] Y N Sp./Lang. Skills Ear Surgery R L Vertigo [x] [] Appropriate [x] [] PE Tubes [] [] Dizziness [x] [] In Therapy [] [x] Mastoidectomy [] [] Imbalance [x] [] Social Acoustic Neuroma [] [] Vestibular Rehab [] [x] Depression [] [x] Tympanoplasty [] [] Hearing aids: none Other: Results: Otoscopy: Performed by Dr. Pineda prior to testing. Puretone Air & Bone Conduction Audiometry: Pure tone audiometry suggested hearing within normal limits, bilaterally. Speech Audiometry: Speech recognition thresholds were in good agreement with puretone averages. Word recognition was good (88% in the right ear and 82% in the left ear) when assessed at soft loudness levels using recorded male voice. Immittance Audiometry: Tympanometry revealed normal ear canal volume, normal static compliance, and normal resting pressure (Jerger type A), bilaterally. Ipsilateral and contralateral acoustic reflexes were present in both ears. Impression: Middle ear testing was consistent with a well-ventilated middle ear system, bilaterally. Puretone audiometry was consistent with normal peripheral hearing on day of test. Recommendations: Follow up with Dr. Pineda. Further testing and/or re-evaluation at Dr. Pineda' discretion. Use of hearing protection is recommended when in high levels of noise. The above was explained to Ms. Mcdonald and she expressed understanding. Electronically Signed by: Cindy Nicholson, [facility] 04/23/23 10:17 AM Audiogram: documented in this encounter [facility] 04-23-2023 History of Present illness Narrative [facility] [address] [facility] [place] [address] [facility] [id number] Dept: [phone] MD Nicolasa Giles 52 y.o. female Patient presents with a chief complaint of Establish Care (right ear echo and pop with ringinging and lightheadness) Temp 97.3 F (36.3 C) Wt 72.5 kg (159 lb 12.8 oz) History of Presenting Illness: The patient/caregiver reports a history of complaint with the following features: Onset: started about 5 months ago Timing: gradual onset Duration: several months Quality: lightheadedness, ear fullness, popping and no hearing loss Location: worse on right ear Severity: pain mild Risk factors: TMJ and jaw clenching, but no prior ear disease Alleviating factors: no relief with decongestants Aggravating factors: nothing makes it worse Associated factors: no vertigo except one episode in Dec where she had to hold on to the patterson, just lightheaded since. Initial episode lasted about 24 hours. Review of systems covering 10 systems is reviewed and pertinent positives and negatives are noted as above. History reviewed. No pertinent past medical history. Current Outpatient Medications: ssifxyve-pnh-nso C-herb no.124 (Airborne Gummy) 250-11.66 mg Chew, Chew and Swallow daily ., Disp: , Rfl: mv,Ca,min/iron/FA/guarana/caff (ONE-A-DAY WOMEN'S ACTIVE ORAL), Take 1 tablet by mouth daily ., Disp: , Rfl: aspirin 81 MG EC tablet, Take 1 (one) tablet (81 mg total) by mouth daily ., Disp: , Rfl: biotin 5 mg Tab, Take by mouth ., Disp: , Rfl: cyanocobalamin (B-12) 100 MCG tablet, Take by mouth daily ., Disp: , Rfl: zegsdmyn-fov-vgi C-herb no.124 (Airborne Gummy) 250-11.66 mg Chew, Chew and Swallow daily ., Disp: , Rfl: norgestimate-ethinyl estradioL 0.25-35 mg-mcg per tablet, Take 1 (one) tablet by mouth daily ., Disp: , Rfl: No Known Allergies History reviewed. No pertinent surgical history. Social History Socioeconomic History Marital status: Tobacco Use Smoking status: Never Smokeless tobacco: Never Substance and Sexual Activity Alcohol use: Never Drug use: Never History reviewed. No pertinent family history. PHYSICAL EXAM: The patient was examined today 04/23/2023 with findings as follows: CONSTITUTIONAL: General Appearance: well-appearing, nontoxic, alert, no acute distress Communication: understanding at normal conversational tones, normal voicing, speech intelligible HEAD/FACE: Head: atraumatic, normocephalic, no lesions Facial Inspection: no lesions, healthy skin Facial Strength: motor strength normal, symmetric strength, symmetric movement Sinuses: no sinus tenderness Salivary Glands: no enlargements of parotid glands, no tenderness of parotid glands, no masses of parotid glands, clear salivary flow on palpation from Stensen's ducts, no duct stones of Stensen's duct, no enlargement of submandibular glands, no tenderness of submandibular glands, no masses of submandibular glands, clear salivary flow from Amandeep's ducts, no stones of Amandeep's ducts Temporomandibular Joint: no crepitus with motion, no tenderness on palpation, no trismus, motion symmetric EYES: Pupils: PERRLA, extra-ocular movements intact, no nystagmus, sclera white, no redness of eyes, no watering of eyes EARS: Bilateral External Ears: no pits, no tags Right External Ear: normally formed, no lesions, no mastoid tenderness Left External Ear: normally formed, no lesions, no mastoid tenderness Right External Auditory Canal: normal, healthy skin, no obstructing cerumen, no discharge Left External Auditory Canal: normal, healthy skin, no obstructing cerumen, no discharge Right Tympanic Membrane: normal landmarks, translucent, mobile to pneumatic otoscopy, no perforation Left Tympanic Membrane: normal landmarks, translucent, mobile to pneumatic otoscopy, no perforation Hearing: intact to spoken voice, intact to finger rub, Miramontes midline, Right Ear: Rinne AC>BC, Left Left Ear: Rinne AC>BC NOSE: Nasal Skin: no lesions, no lacerations, no scars Nasal Dorsum: symmetric with no visible or palpable deformities Nasal Tip: normal symmetric nasal tip, normal nasal valves Nasal Mucosa: normal, pink and moist Septum: not markedly deformed, midline, no exposed vessels, no bleeding, no septal granuloma Turbinates: normal size and conformation Nasopharynx: normal ORAL CAVITY/MOUTH: Lips, teeth, gums: normal lips, normal gums, dentition intact, no dental pain on palpation Oral Mucosa: normal, moist, no lesions Palate: normal hard palate, normal soft palate, symmetric palatal elevation Floor of Mouth: normal floor of mouth Tongue: normal tongue, no lesions, no edema, no masses, normal mucosa, mobile Tonsils: normal tonsils, symmetric, no lesions Posterior pharynx: normal HYPOPHARYNX/LARYNX: Hypopharynx: normal hypopharynx, normal tongue base, normal pyriform sinus, normal vallecula Larynx: normal epiglottis, normal false vocal cords, normal true vocal cords, normal glottic mobility, no arytenoid edema, no post-cricoid edema, no subglottic stenosis NECK: Neck: no masses, trachea midline, normal range of motion, no cysts or pits, no tenderness to palpation Thyroid: normal thyroid, no enlargement, no tenderness, no nodules LYMPH NODES: Cervical: no palpable lymph node enlargement SKIN: General Appearance: no lesions, warm and dry, normal turgor, no bruising NEUROLOGICAL SYSTEM: Orientation: oriented to time, oriented to place, oriented to person Cranial Nerves: Cranial Nerves II-XII intact, normal facial movement NEUROLOGICAL SYSTEM: Orientation: oriented to time, oriented to place, oriented to person Cranial Nerves: Cranial Nerves II-XII intact, normal facial movement, normal facial sensation to touch, normal corneal reflex, normal shoulder shrug, normal detection of odorants and normal laryngeal elevation Cerebellar: normal gait, normal finger-nose pointing and negative romberg's sign Vestibulocular: Orlando-Hallpike testing negative, Fukuda step test normal, no ocular pursuit defects, and no head-shaking test induced nystagmus PSYCHIATRIC: Mood and affect: normal mood, normal affect Assessment and Plan: I see no middle ear disease on exam. We have discussed that TMJ inflammation can result in aural fullness and pressure complaints. She does report an isolated vertiginous episode with persistent lightheadedness since and a labyrinthitis event is considered. No vestibular deficit is noted one exam suggesting resolution of any dysfunction. She has noted that the lightheadedness is more pronounce when working out and her PCP has offered cardiac evaluation if symptoms persist witch seems reasonable. We have discussed that Meniere's diease can present with ear fullness, fluctuating hearing, and vertigo and if she is having recurrent episodes this may be considered, but I see no evidence of the typical hearing loss seen in this condition on her visit today. Return for hearing testing if symptoms return to capture any hearing change which would be typical for this condition is advised. I have advised the patient and/or caregiver that the symptoms and exam findings are possibly consistent with Meniere's disease. We have discussed that the symptoms result from inflammation of a fluid filled sac in the inner ear. We have discussed that although this usually occurs spontaneously in isolation, these symptoms can also result from other disease of the ear or central nervous system. Treatment strategies of maintenance of a low sodium diet, use of diuretic agents, and vestibular sedatives are discussed. The natural history of the disease process is discussed including fluctuation of symptoms, the possibilty of sudden attacks with fall or other injury, the need for taking precautions to prevent injury from fall, sudden and permanent hearing loss or balance problems, and the need for continued follow-up are discussed. The patient and/or caregiver is able to state an understanding of these recommendations and is agreeable to the treatment plan. Audiometric testing is performed today and independently reviewed and interpreted. This shows normal hearing bilaterally. Tympanometry shows normal compliance consistent with normally ventilated middle ear spaces. I have spent greater than 45 minutes in today's visit today in discussion with the patient and caregiver, review of records, and care coordination. This excludes any procedures separately billed. 1. Vertigo 2. Abnormal auditory perception of both ears Ambulatory referral to Audiology Return if symptoms worsen or fail to improve. The patient and/or caregiver is to notify the office if no improvement or worsening of symptoms is noted prior to the scheduled follow-up for sooner evaluation. The patient and/or caregiver is able to state an understanding of these recommendations and is agreeable to the treatment plan. --Magaly Pineda MD on 04/23/2023 at 11:26 AM An electronic signature was used to authenticate this note. Review of Systems Constitutional: Negative for fever. HENT: Positive for congestion, ear pain, hearing loss and postnasal drip. Respiratory: Positive for cough and choking. Cardiovascular: Positive for palpitations. Gastrointestinal: Negative for abdominal pain, constipation, diarrhea, nausea and rectal pain. Genitourinary: Negative for frequency and urgency. Musculoskeletal: Negative for joint swelling and neck pain. Skin: Positive for rash and wound. Neurological: Positive for light-headedness. Negative for speech difficulty, numbness and headaches. Hematological: Bruises/bleeds easily. Psychiatric/Behavioral: Negative for confusion. documented in this encounter [facility] 01-01-2023 Miscellaneous Notes Annual scheduled with 01/11/23. Requested Prescriptions Pending Prescriptions Disp Refills norgestimate 0.25 mg-ethinyl estradiol 35 mcg (SPRINTEC) 0.25-35 mg-mcg per tablet 28 tablet 0 Sig: Take 1 tablet by mouth once daily. Robert Ahumada RN documented in this encounter [facility] 11-30-2022 Miscellaneous Notes Annual scheduled with 01/11/23. Requested Prescriptions Pending Prescriptions Disp Refills norgestimate 0.25 mg-ethinyl estradiol 35 mcg (SPRINTEC) 0.25-35 mg-mcg per tablet 28 tablet 1 Sig: Take 1 tablet by mouth once daily. Robert Ahumada RN documented in this encounter [facility] 12-28-2021 History of Present illness Narrative General Superintendent offered: Patient declines. Nicolasa is a 51 year old who presents for an annual gynecologic exam without complaints. Postmenopausal: No. Menstrual cycle every 24 days Flow 5 days HRT use: No. 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 Herpes zoster 2007 Baker product of IVF PAST SURGICAL HISTORY Procedure Laterality Date AUGMENTATION MAMMAPLASTY 03/04/2000 CERVIX UTERI CONIZA LP ELCTRO EXCI APPROX 2000 LEEP-Cervix HYSTEROSCOPY 12/01/2020 D&C, incomplete polypectomy LIGATE FALLOPIAN TUBE Tubal ligation REMOVAL OF UTERUS LESION, MYOMECTOMY-AB laparoscopic with D&C FAMILY HISTORY Problem Relation Age of Onset Coronary Artery Disease Father Diabetes Father Seizures Sister No Known Problems Sister No Known Problems Sister Pancreatic Cancer Brother No Known Problems Brother Breast Cancer Maternal Aunt No Known Problems Son SOCIAL HISTORY Social History Tobacco Use Smoking status: Former Packs/day: 0.50 Years: 15.00 Pack years: 7.50 Types: Cigarettes Quit date: 04/04/2006 Years since quittin.7 Smokeless tobacco: Never Vaping Use Vaping Use: Never used Substance Use Topics Alcohol use: No Drug use: No REVIEW OF SYSTEMS Abdomen: No abdominal pain, nausea, vomiting, diarrhea, or constipation. No bloating, early satiety, indigestion, or increased flatulence. Bladder: No dysuria, gross hematuria, urinary frequency, urinary urgency, or incontinence Breast: No breast lumps, nipple d/c, overlying skin changes, redness or skin retraction Allergies and current medication updated:Yes EXAM: LMP 01/16/2021 GENERAL: pleasant, female in no apparent distress HEENT: Normocephalic, atraumatic, and no lesions NECK: Supple, full range of motion, no adenopathy, and thyroid normal DERMATOLOGY: Normal, without lesions, non-icteric, and non-hirsute BREAST: soft, non-tender, symmetric, no dominant mass, normal nipple-areolar complex, no lymphadenopathy, and no nipple discharge CHEST: Normal inspiratory effort ABDOMEN: soft, non-tender, and no masses PELVIC: external genitalia normal, normal Bartholin's glands, urethra, Pearisburg's glands, no vulvar lesions, no cervical lesions, physiologic discharge present, normal appearing perineal body and perianal region BIMANUAL: uterus normal size, shape and consistency, no adnexal masses, and non-tender RECTOVAGINAL: deferred. NEURO: alert and oriented x3,exam grossly non-focal EXTREMITIES: normal ASSESSMENT/PLAN: 1) Health maintenance: Pap/HPV up to date. Nutrition, exercise and routine health maintenance exams reviewed. Calcium/Vitamin D supplementation information provided. Colon cancer screening: cologuard done last year 2) Follow up one year or sooner as needed Johanny Trujillo APRN.QUALITY ASSURANCE NURSE documented in this encounter [facility] Evaluation note No assessment inform ation available [facility] Work Phone: Evaluation note Diagnosis Encounter for gynecological examination (general) (routine) without abnormal findings- Primary Encounter for surveillance of contraceptive pills Surveillance of previously prescribed contraceptive pill [facility] Diagnosis Vertigo- Primary Dizziness and giddiness Abnormal auditory perception of both ears [facility] Diagnosis Abnormal auditory perception of both ears [facility] Diagnosis Encounter for gynecological examination (general) (routine) without abnormal findings- Primary Encounter for screening for human papillomavirus (HPV) Special screening examination for human papillomavirus (HPV) Pap smear for cervical cancer screening Screening for malignant neoplasm of the cervix Encounter for screening mammogram for breast cancer Encounter for surveillance of contraceptive pills Surveillance of previously prescribed contraceptive pill documented in this encounter [facility] Summary Purpose Family History No Family History Records Found Relationship Condition Age at Onset Recorded Date/T renu father Congestive heart failure Unknown Advance Directives No Advanced Directives Records Found Advance Directive Response Recorded Date/ Time Living Will Yes November 28, 2020 1:15pm Power of Eyeglass Lens Grinder Yes November 1:15pm Chief Complaint and Reason for Visit Chief Complaint SCREENING Reason for Referral Specialty Diagnoses / Procedures Referred By Keri andrews Referred To Contact Audiology Diagnoses Abnormal auditory perception of both ears Magaly Pineda MD [address] [place] [address] [address] [place] [address] [facility] [address] [place] [address] Referral ID Status Reason Start Date Expiration Date Visits Re quested Visits Authorized [id number] Closed 04/23/2023 04/22/2024 1 1 Additional Source Comments INFORMATION SOURCE (unrecogn ized section and content) DATE CREATED AUTHOR 11/18/2017 Connie Priest [facility] DATE CREATED AUTHOR AUTHOR'S ORGANIZ ATION 11/17/2019 [facility] DATE CREATED AUTHOR AUTHOR'S ORGANIZ ATION 11/23/2019 Veto Kaplanne [facility] DATE CREATED AUTHOR AUTHOR'S ORGANIZ ATION 06/19/2022 [facility] DATE CREATED AUTHOR AUTHOR'S ORGANIZ ATION 04/24/2023 [facility] DATE CREATED AUTHOR AUTHOR'S ORGANIZ ATION 12/04/2024 [facility] DATE CREATED AUTHOR AUTHOR'S ORGANIZ ATION 12/09/2024 [facility] Goals (unrecognized section and content) Goals may be documented in a n alternate sectionGoals may be documented in an alternate sectionGoals may be documented in an alternate section Source Comments (unrecognize d section and content) In the event this informatio n is protected by the Federal Confidentiality of Alcohol and Drug Abuse Patient Records regulations: The Federal rules restrict any use of the information to criminally investigate or prosecute any alcohol or drug abuse patient.[facility] event this information is protected by the Federal Confidentiality of Alcohol and Drug Abuse Patient Records regulations: The Federal rules restrict any use of the information to criminally investigate or prosecute any alcohol or drug abuse patient.[facility] the event this information is protected by the Federal Confidentiality of Alcohol and Drug Abuse Patient Records regulations: The Federal rules restrict any use of the information to criminally investigate or prosecute any alcohol or drug abuse patient.[facility] the event this information is protected by the Federal Confidentiality of Alcohol and Drug Abuse Patient Records regulations: The Federal rules restrict any use of the information to criminally investigate or prosecute any alcohol or drug abuse patient.[facility] Reason for Visit (unrecogniz ed section and content) Reason Comments Yearly COURTESY CAR DRIVER Exam Reason Onset Date Comments Refill Request 11/30/2022 Reason Onset Date Comments Refill Request 01/01/2023 Reason Comments Establish Care right ear echo and p op with ringinging and lightheadness Specialty Diagnoses / Procedures Referred By Keri andrews Referred To Contact Audiology Diagnoses Abnormal auditory perception of both ears Magaly Pineda MD [address] [facility] [address] [place] [address] [facility] [address] [place] [id number] Referral ID Status Reason Start Date Expiration Date Visits Re quested Visits Authorized [id number] Closed 04/23/2023 04/22/2024 1 1 Reason Comments [facility] Care Teams (unrecognized sec tion and content) Prospect Manager Relationship Specialty Start Date End Date Indu Ashley) [facility] [address] [place], [place] [id number] PCP - General 11/08/06 Team Status: Active Member Role Status Dates Dr. Magaly Farris MD Family Provider Active Dr. Magaly Farris MD Primary Care Provider Active Team Status: Inactive Member Role Status Dates Dr. Magaly Farris MD Primary Care Provider Active Marycarmen Colon MD Attending Provider Active Team Status: Inactive Member Role Status Dates Dr. Magaly Farris MD Primary Care Provide r, Attending Provider, Referring Provider Active Prospect Manager Relationship Specialty Start Date End Date Indu Ashley) [facility] [address] [place] [address] PCP - General 11/08/06 Prospect Manager Relationship Specialty Start Date End Date Magaly Farris MD [address] [facility] [address] [place] [address] PCP - General Family Medicine 04/23/23 Prospect Manager Relationship Specialty Start Date End Date Magaly Farris MD [address] [facility] [address] [place], [place] [id number] PCP - General Family Medicine 04/23/23 Prospect Manager Relationship Specialty Start Date End Date Indu Ashley [facility] [address] [place] [address] PCP - General 11/08/06 <item> Privacy Markings (unrecogniz ed section and content) Section Author: Linda Aldana PROHIBITION ON REDISCLOSURE OF CONFIDENTIAL INFORMATION This notice accompanies a disclosure of information concerning a client made to you with the consent of such client. FOR RECORDS PERTAINING TO PATIENTS WHO ARE OR HAVE BEEN ENROLLED IN A CHEMICAL DEPENDENCY/SUBSTANCEABUSE PROGRAM, SOME INFORMATION MAY BE OMITTED. This clinical summary was aggregated from multiple sources. Caution should be exercised in using it in the provision of clinical care. This summary normalizes information from multiple sources, and as a consequence, information in this document may materially change the coding, format and clinical context of patient data. In addition, data may be omitted in some cases. CLINICAL DECISIONS SHOULD BE BASED ON THE PRIMARY CLINICAL RECORDS. [facility]. provides no warranty or guarantee of the accuracy or completeness of information in this document.
== END | disposition home or self-care (01) ==
LOC: OPBI 11:50
PROVIDERS: PCP Family Medicine; Referring Provider Nurse Practitioner Family; Visit Provider Nurse Practitioner Family
DX: Z12.31 Encounter for screening mammogram for malignant neoplasm of breast (principal)
CPT/HCPCS: 77063; 77067